=== PATIENT | male | born 1995 | race African-American/Black ===

== ENCOUNTER 2018-02-14 15:21 | Observation (INO) | payer OTHER ==
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
[2018-02-14] MEDS: KETOROLAC 30 MG/ML INJ IV PRN ×2 (18:14→23:53)
[2018-02-14] MEDS: NA CHLORIDE 0.9% 1,000 ML IV SCH ×2 (18:14→20:48)
[2018-02-14] MEDS: PANTOPRAZOLE 40MG TABLET PO SCH (18:14)
--- NOTE | 2018-02-14 21:07 | RAD REPORT ---
EXAM DESCRIPTION: MRI - Lumbar Spine Wo Con - 02/14/2018 8:33 pm CLINICAL HISTORY: Radiculopathy and back pain. Lumbar fracture. COMPARISON: None. TECHNIQUE: Sagittal T1, T2 and STIR weighted sequences were obtained. Axial T1 and T2 sequences were obtained through the lumbar disc levels. FINDINGS: L1-2, L2-3, L3-4 and L4-5 demonstrate no significant abnormality. The L5-S1 disc is thinned and desiccated. A small to moderate right lateral disc herniation is presen t which narrows the right neural foramina. No abnormal signal within the bones is seen. A fracture involving the vertebral body is not noted. IMPRESSION: Small to moderate right lateral disc herniation L5-S1 resulting in right foraminal steno sis
--- NOTE | 2018-02-14 21:11 | RAD REPORT ---
EXAM DESCRIPTION: MRI - Thoracic Spine Wo Contr - 02/14/2018 8:33 pm CLINICAL HISTORY: Radiculopathy, back pain, vertebral fracture COMPARISON: None. TECHNIQUE: Sagittal T1 weighted, T2 weighted and T2 STIR weighted sequences were obtained. Axial T2 weighted images were obtained through each disc level. FINDINGS: A disc herniation is not seen. Significant disc bulge is not noted. Central spinal stenosis is not present. The neural foramina are patent. Spinal cord is normal caliber and signal. No abnormal signal within the bones is noted. A vertebral fracture is not seen. IMPRESSION: Unremarkable MRI thoracic spine
[2018-02-14] MEDS: ACETAMINOPHEN 500 MG TAB PO PRN (21:16)
[2018-02-15 02:44] LABS: Urine Appearance CLEAR; Urine Bilirubin NEGATIVE (NEG); Urine Blood NEGATIVE (NEG); Urine Color YELLOW; Urine Glucose NEGATIVE (NEG); Urine Protein NEGATIVE (NEG); Urine Urobilinogen 0.2 mg/dL (0.2-1.0); Urine pH 6.5 (5.0-7.0)
[2018-02-15 02:59] LABS: Urine Microscopic Reflex ORDER UMIC
[2018-02-15 03:12] LABS: Urine Bacteria <20 /HPF (NONE SEEN); Urine Culture Reflex Order NOT NEEDED; Urine RBC <5 /HPF (NONE SEEN)
[2018-02-15 05:26] LABS: Absolute Lymphocytes (CBC) 1.4 K/uL (0.7-4.9); Absolute Monocytes 0.3 K/uL (0.1-1.3); Absolute Neutrophil 1.6 K/uL (1.8-8.0); Eosinophils % 1.4 % (0-4.4); Lymphocytes % 42.4 % (15.3-44.8); MCH 27.2 pg (27.0-35.0); MCV 83.7 fL (80-100); MPV 8.7 fL (7.6-11.3); Monocytes % 8.4 % (3.3-12.3); RBC Red Blood Cell Count 4.54 M/uL (4.33-5.43)
[2018-02-15 05:39] LABS: ALT/SGPT 9 IU/L (10-60); AST/SGOT 15 IU/L (10-42); Albumin 3.4 g/dL (3.2-5.5); Alkaline Phosphatase 43 IU/L (42-121); BUN Blood Urea Nitrogen 8 mg/dL (6-20); Bicarbonate 27 mEq/L (21-31); Bilirubin Total 1.1 mg/dL (0.3-1.2); Glucose Level 86 mg/dL (65-120); Potassium 4.1 mEq/L (3.6-5.0); Protein, Total 5.8 g/dL (6.0-8.3); Sodium Level 137 mEq/L (135-145)
[2018-02-15] MEDS: PANTOPRAZOLE 40MG TABLET PO SCH (08:33)
[2018-02-15] MEDS: ACETAMINOPHEN 500 MG TAB PO PRN (09:21)
--- NOTE | 2018-02-15 10:38 | P.DS ---
Admission Date: 02/14/18 Discharge Date: 02/15/18 Primary Care Provider: Dr. Morrison Disposition: ROUTINE DISCHARGE Discharge Condition: GOOD Reason for Admission: back pain Procedures: MRI: FINDINGS: L1-2, L2-3, L3-4 and L4-5 demonstrate no significant abnormality. The L5-S1 disc is thinned and desiccated. A small to moderate right lateral disc herniation is present which narrows the right neural foramina. No abnormal signal within the bones is seen. A fracture involving the vertebral body is not noted. IMPRESSION: Small to moderate right lateral disc herniation L5-S1 resulting in right foraminal stenosis - Problems (1) Lumbar disc herniation Current Visit: Yes Status: Acute (2) Foraminal stenosis of lumbar region Current Visit: Yes Status: Acute (3) Back pain Current Visit: Yes Status: Chronic Qualifiers: Back pain location: thoracic back pain Chronicity: chronic Back pain laterality: midline Qualified Code(s): M54.6 - Pain in thoracic spine; G89.29 - Other chronic pain; G89.29 - Other chronic pain (4) GERD (gastroesophageal reflux disease) Current Visit: Yes Status: Suspected Qualifiers: Esophagitis presence: esophagitis presence not specified Qualified Code(s) : K21.9 - Gastro-esophageal reflux disease without esophagitis Brief History of Present Illness: 22-year-old male presented to [facility] for back pain. The patient also reported some epigastric and chest pain. Due to the nature of his symptoms the patient was transferred to the hospital for further evaluation. Hospital Course: Patient presented with back pain. During the course of his stay the pain improved. Patient did have an MRI of the thoracic and lumbar region. The MRI of the lower spine showed small to moderate right lateral disc herniation at the L5-S1 region with right foraminal stenosis noted. At discharge patient will continue with over the counter medication including ibuprofen 600 mg 1 pill twice daily as needed for pain along with Tylenol 500 mg 1 pill 3 times a day as needed. The patient will be provided Neurontin 100 mg 1 pill 3 times a day as needed for pain as well. Lidocaine patch applied to the back daily will also be provided. Recommendation is for the patient to follow up with a back surgeon and possibly pain management to further address. Recommendation on no heavy lifting, pushing or pulling. He is to follow up with his PCP within 1 week so that he can be evaluated and cleared to go back to work. Patient may have underlying GERD. Recommendation is to continue with Protonix 40 mg 1 pill once daily. Patient may require GI evaluation if this persists. Vital Signs/Physical Exam: Temp Pulse Resp BP Pulse Ox 97.4 F 56 18 120/59 L 100 02/15/18 04:00 02/15/18 04:00 02/15/18 04:00 02/15/18 04:00 02/15/18 04:00 General: Alert, In no apparent distress, Oriented x3, Cooperative HEENT: Atraumatic, Mucous membr. moist/pink Neck: Supple, No Thyromegaly Respiratory: Clear to auscultation bilaterally, Normal air movement Cardiovascular: Normal pulses, Regular rate/rhythm Gastrointestinal: Normal bowel sounds, Soft and benign, Non-distended, No tenderness, No masses, No rebound, No guarding Musculoskeletal: No erythema, No tenderness, No warmth Integumentary: No tenderness/swelling, No erythema, No warmth, No cyanosis Neurological: Normal speech, Normal strength at 5/5 x4 extr, Normal tone, Normal affect Lymphatics: No axilla or inguinal lymphadenopathy Laboratory Data at Discharge: WBC 3.3 K/uL (4.3-10.9) L 02/15/18 04:23 Hgb 12.3 g/dL (13.6-17.9) L 02/15/18 04:23 Hct 38.0 % (39.6-49.0) L 02/15/18 04:23 Plt Count 243 K/uL (152-406) 02/15/18 04:23 Sodium 137 mEq/L (135-145) 02/15/18 04:23 Potassium 4.1 mEq/L (3.6-5.0) 02/15/18 04:23 BUN 8 mg/dL (6-20) 02/15/18 04:23 Creatinine 0.95 mg/dL (0.61-1.24) 02/15/18 04:23 Glucose 86 mg/dL (65-120) 02/15/18 04:23 Total Bilirubin 1.1 mg/dL (0.3-1.2) 02/15/18 04:23 AST 15 IU/L (10-42) 02/15/18 04:23 ALT 9 IU/L (10-60) L 02/15/18 04:23 Alkaline Phosphatase 43 IU/L (42-121) 02/15/18 04:23 Home Medications: Gabapentin [Neurontin] 100 mg PO TID PRN #30 cap 02/15/18 Lidocaine 5% Patch [Lidoderm 5% Patch*] 1 patch TD DAILY #15 patch 02/15/18 Pantoprazole [Protonix Tab*] 40 mg PO DAILY #30 tab 02/15/18 New Medications: Gabapentin [Neurontin] 100 mg PO TID PRN #30 cap PRN Reason: Pain Lidocaine 5% Patch [Lidoderm 5% Patch*] 1 patch TD DAILY #15 patch Pantoprazole [Protonix Tab*] 40 mg PO DAILY #30 tab Patient Discharge Instructions: 1. Patient will need to follow up with his PCP within 1 week to follow up this hospitalization. 2. Patient presented with back pain. The patient had an MRI of the lower spine showing small to moderate right lateral disc herniation at the L5-S1 region with right foraminal stenosis noted. Patient without significant back pain at this time. Patient may take ibuprofen 600 mg 1 pill twice daily as needed for pain along with Tylenol 500 mg 1 pill 3 times a day as needed. The patient will be provided Neurontin 100 mg 1 pill 3 times a day as needed for pain as well. Lidocaine patch will also be provided. Recommendation is for the patient to follow up with a back surgeon and possibly pain management to further address. Recommendation on no heavy lifting, pushing or pulling. He is to follow up with his PCP within 1 week so that he can be evaluated and cleared to go back to work. 3. Patient may have underlying GERD. Recommendation is to continue with Protonix 40 mg 1 pill once daily. Patient may require GI evaluation if this persists. Diet: AHA Activity: No lifting more than 10 lbs Time spent managing pt's care (in minutes): 55
== END 2018-02-15 12:43 | disposition home or self-care (01) ==
LOC: 2ND 15:21 → INTOOBSV 15:21
PROVIDERS: ADMIT Internal Medicine; ATTEND Internal Medicine
DX: M51.27 Other intervertebral disc displacement, lumbosacral region (principal); M48.061 Spinal stenosis, lumbar region without neurogenic claudication
CPT/HCPCS: 36415; 72146; 72148; 80053; 81003; 81015; 85025; G0378; J7030

== ENCOUNTER 2023-04-07 23:11 | Emergency (ER) | payer OTHER ==
--- OUTSIDE RECORDS SUMMARY | 2023-04-07 23:23 | XMS REPORT | Continuity of Care Document ---
:1995 Author Organization [facility] t Address [address] [place] [address] [place] [id number] Care Team Providers Name Role Phone Mason MSN,, Nicolle Primary Care Physician [phone] Esau Malloy Attending Clinician CHARLY CABRERA Attending Clinician Unavailable Payers Payer Name Policy Type Policy Number Effective Date Expiration Date Janusz matias CIGNA II [id number] 2016 00:00:00 Problems This patient has no known problems. Allergies, Adverse Reactions, Alerts Allergy Allergy Status Severity Reaction(s) Onset Inactive Treating Comm ents Source Name Type Date Date Clinician NO KNOWN Drug Active Univers ALLERGIE Class ity of S [facility] Social History Social Habit Start Date Stop Date Quantity Comments Source Sex Assigned At [facility] Exposure to SARS-CoV-2 Not sure Un iversFormerly [facility] (event) [facility] Smoking Status Start Date Stop Date Source Current some day smoker 2017-11-20 00:00:00 Univ [facility] Medications Ordered Filled Start Stop Current Ordering Indication Dosage Frequency Signature Comments Components Source Medication Medication Date Date Medication? Clinician (SIG) Name Name TAKE 1 2021-0 No 1 TABLET BY 8-18 MOUTH EVERY 00:00: DAY 00 NEEDED FOR ANXIETY TAKE 2 2021-0 No TABLETS BY 8-18 MOUTH EVERY 00:00: 6 HOURS 00 NEEDED FOR PAIN TAKE 1 OR 2 2021-0 No 25 TABLETS 8-18 EVERY 8 00:00: HOURS 00 NEEDED. TAKE 1 2021-0 No 1 TABLET BY 8-18 MOUTH EVERY 00:00: DAY 00 NEEDED FOR ANXIETY TAKE 2 2021-0 No TABLETS BY 8-18 MOUTH EVERY 00:00: 6 HOURS 00 NEEDED FOR PAIN TAKE 1 OR 2 2022-0 No TABLETS 8-18 EVERY 8 00:00: HOURS 00 NEEDED. TAKE 1 2-0 No 1 TABLET BY 8-18 MOUTH EVERY 00:00: DAY 00 NEEDED FOR ANXIETY TAKE 2 2022-0 No TABLETS BY 8-18 MOUTH EVERY 00:00: 6 HOURS 00 NEEDED FOR PAIN TAKE 1 OR 2 2022-0 No 25 TABLETS 8-18 EVERY 8 00:00: HOURS 00 NEEDED. Dose 2022-0 No Unknown 5-02 00:00: 00 Dose 2022-0 No Unknown 5-02 00:00: 00 Dose 2-0 No Unknown 5-02 00:00: 00 Dose 2-0 No Unknown 5-02 00:00: 00 Dose 2-0 No Unknown 5-02 00:00: 00 Dose 2-0 No Unknown 5-02 00:00: 00 Dose 2-0 No Unknown 5-02 00:00: 00 Dose 2-0 No Unknown 5-02 00:00: 00 Dose 2-0 No Unknown 5-02 00:00: 00 Dose 2022-0 No Unknown 5-02 00:00: 00 Dose 2-0 No Unknown 5-02 00:00: 00 Dose 2-0 No Unknown 5-02 00:00: 00 Dose 2-0 No Unknown 5-02 00:00: 00 Dose 2-0 No Unknown 5-02 00:00: 00 Dose 2-0 No Unknown 5-02 00:00: 00 Dose 2-0 No Unknown 5-02 00:00: 00 Dose 2-0 No Unknown 5-02 00:00: 00 Dose 2-0 No Unknown 5-02 00:00: 00 Dose 2-0 No Unknown 5-02 00:00: 00 Dose 2022-0 No Unknown 5-02 00:00: 00 Dose 2-0 No Unknown 5-02 00:00: 00 Dose 2-0 No Unknown 5-02 00:00: 00 Dose 2-0 No Unknown 5-02 00:00: 00 Dose 2-0 No Unknown 5-02 00:00: 00 Dose 2022-0 No Unknown 4-28 00:00: 00 Dose 2022-0 No Unknown 4-28 00:00: 00 Dose 2022-0 No Unknown 4-28 00:00: 00 Dose 2022-0 No Unknown 4-28 00:00: 00 Dose 2022-0 No Unknown 4-28 00:00: 00 Dose 2022-0 No Unknown 4-28 00:00: 00 Dose 2022-0 No Unknown 4-28 00:00: 00 Dose 2022-0 No Unknown 4-28 00:00: 00 Dose 2022-0 No Unknown 4-28 00:00: 00 Dose 2022-0 No Unknown 4-28 00:00: 00 Dose 2022-0 No Unknown 4-28 00:00: 00 Dose 2022-0 No Unknown 4-28 00:00: 00 Dose 2022-0 No Unknown 4-28 00:00: 00 Dose 2022-0 No Unknown 4-28 00:00: 00 Dose 2022-0 No Unknown 4- 00:00: 00 Dose 2022-0 No Unknown 4- 00:00: 00 Dose 2022-0 No Unknown 4-28 00:00: 00 Dose 2022-0 No Unknown 4-28 00:00: 00 Dose 2022-0 No Unknown 4-28 00:00: 00 Dose 2022-0 No Unknown 4-28 00:00: 00 Dose 2022-0 No Unknown 4-28 00:00: 00 Dose 2022-0 No Unknown 4-28 00:00: 00 Dose 2022-0 No Unknown 4- 00:00: 00 Dose 2022-0 No Unknown 4-28 00:00: 00 Dose 2022-0 No Unknown 4-28 00:00: 00 Dose 2022-0 No Unknown 4-28 00:00: 00 Dose 2022-0 No Unknown 4-28 00:00: 00 Dose 2022-0 No Unknown 4-28 00:00: 00 Dose 2022-0 No Unknown 4-28 00:00: 00 Dose 2022-0 No Unknown 4-28 00:00: 00 Dose 2022-0 No Unknown 4-28 00:00: 00 Dose 2022-0 No Unknown 4-28 00:00: 00 Dose 2022-0 No Unknown 4-28 00:00: 00 Dose 2022-0 No Unknown 4-28 00:00: 00 Dose 2022-0 No Unknown 4-28 00:00: 00 Dose 2022-0 No Unknown 4-28 00:00: 00 Dose 2022-0 No Unknown 4-28 00:00: 00 Dose 2022-0 No Unknown 4-28 00:00: 00 Dose 2022-0 No Unknown 4-28 00:00: 00 Dose 2022-0 No Unknown 4-28 00:00: 00 Dose 2022-0 No Unknown 4-28 00:00: 00 Dose 2022-0 No Unknown 4-28 00:00: 00 Dose 2022-0 No Unknown 4-28 00:00: 00 Dose 2022-0 No Unknown 4-28 00:00: 00 Dose 2022-0 No Unknown 4-28 00:00: 00 Dose 2022-0 No Unknown 4-28 00:00: 00 Dose 2022-0 No Unknown 4-28 00:00: 00 Dose 2022-0 No Unknown 4-28 00:00: 00 Dose 2022-0 No Unknown 4-28 00:00: 00 Dose 2022-0 No Unknown 4-28 00:00: 00 Dose 2022-0 No Unknown 4-28 00:00: 00 Dose 2022-0 No Unknown 4-28 00:00: 00 Dose 2022-0 No Unknown 4-28 00:00: 00 Dose 2022-0 No Unknown 4-28 00:00: 00 Dose 2022-0 No Unknown 4-28 00:00: 00 Dose 2022-0 No Unknown 4-28 00:00: 00 Dose 2022-0 No Unknown 4-28 00:00: 00 Dose 2022-0 No Unknown 4-28 00:00: 00 Dose 2022-0 No Unknown 4-28 00:00: 00 Dose 2022-0 No Unknown 4-28 00:00: 00 Dose 2022-0 No Unknown 4-28 00:00: 00 Dose 2022-0 No Unknown 4-28 00:00: 00 Dose 2022-0 No Unknown 4-28 00:00: 00 Dose 2022-0 No Unknown 4-28 00:00: 00 Dose 2022-0 No Unknown 4-28 00:00: 00 Dose 2022-0 No Unknown 4-28 00:00: 00 Dose 2022-0 No Unknown 4-28 00:00: 00 Dose 2022-0 No Unknown 4-28 00:00: 00 Dose 2022-0 No Unknown 4-28 00:00: 00 Dose 2022-0 No Unknown 4-28 00:00: 00 Dose 2022-0 No Unknown 4-28 00:00: 00 Dose 2022-0 No Unknown 4-28 00:00: 00 Dose 2022-0 No Unknown 4-28 00:00: 00 Dose 2022-0 No Unknown 4-28 00:00: 00 Dose 2022-0 No Unknown 4-28 00:00: 00 Dose 2022-0 No Unknown 4-28 00:00: 00 Dose 2022-0 No Unknown 4-28 00:00: 00 Dose 2022-0 No Unknown 4-28 00:00: 00 Dose 2022-0 No Unknown 4-28 00:00: 00 Dose 2022-0 No Unknown 4-28 00:00: 00 Dose 2022-0 No Unknown 4-28 00:00: 00 doxycycline 2020-0 No 1mg monohydrate 2-24 100 mg 00:00: capsule 00 doxycycline 2020-0 No 1mg monohydrate 2-24 100 mg 00:00: capsule 00 doxycycline 2020-0 No 1mg monohydrate 2-24 100 mg 00:00: capsule 00 Macrobid 2020-0 No 1mg 100 mg 2-20 capsule 00:00: 00 Macrobid 2020-0 No 1mg 100 mg 2-20 capsule 00:00: 00 Macrobid 2020-0 No 1mg 100 mg 2-20 capsule 00:00: 00 famotidine 2019-10 2020- No 20mg 20 mg, IV U nivers 20 mg in NS 10-27 Piggyback, i ty of 50 ml 02:15: 02:00 ONCE, 1 [place] (PEPCID) 20 00 :00 dose, [facility] Med ical mg/50 mL 08/26/20 at [facility] Piggyback 2014, 50 20 mg mL maalox:diph 2019-10 2020- No 15mL 15 mL, Uni vers enhydrAMINE 10-27 Oral ity of :lidocaine 02:15: 01:23 [place] 2 % viscous 00 :00 Swallow), Med ical 1:1:1 ONCE, 1 [facility] (FIRST-MOUT dose, Anabel HWASH BLM) 08/26/20 at oral 2014, suspension Routine 15 mL hydroCHLORO 2019-10 Yes [id number] 25mg Take 1 Univers thiazide 25 1-05 tablet by ity of mg tablet 00:00: mouth [place] 00 every Medical morning. Branch famotidine 2019-10 Yes [id number] 40mg Take 1 U nivers (PEPCID) 40 1-05 tablet by ity of mg tablet 00:00: mouth [place] 00 daily. Medical Branch azithromyci 2020-0 No 2mg n 500 mg 8-09 tablet 00:00: 00 azithromyci 2020-0 No 2mg n 500 mg 8-09 tablet 00:00: 00 azithromyci 2020-0 No 2mg n 500 mg 8-09 tablet 00:00: 00 azithromyci 2020-0 No 2mg n 500 mg 4-06 tablet 00:00: 00 azithromyci 2020-0 No 2mg n 500 mg 4-06 tablet 00:00: 00 azithromyci 2020-0 No 2mg n 500 mg 4-06 tablet 00:00: 00 doxycycline 2018-0 No 1mg hyclate 100 4-24 mg tablet 00:00: 00 doxycycline 2018-0 No 1mg hyclate 100 4-24 mg tablet 00:00: 00 doxycycline 2018-0 No 1mg hyclate 100 4-24 mg tablet 00:00: 00 azithromyci 2015-0 No 2mg n 500 mg 2-11 tablet 00:00: 00 azithromyci 2015-0 No 2mg n 500 mg 2-11 tablet 00:00: 00 azithromyci 2015-0 No 2mg n 500 mg 2-11 tablet 00:00: 00 Zithromax 1 2015-0 No 1gram gram oral 2-06 packet 00:00: 00 Zithromax 1 2015-0 No 1gram gram oral 2-06 packet 00:00: 00 Zithromax 1 2015-0 No 1gram gram oral 2-06 packet 00:00: 00 Vital Signs Vital Name Observation Time Observation Value Comments Source Systolic blood 2020-08-27 02:00:00 159 mm[Hg] Univer sity of pressure [facility] Diastolic blood 2020-08-27 02:00:00 108 mm[Hg] Unive rsity of pressure [facility] Heart rate 2020-08-27 02:00:00 53 /min [facility] Respiratory rate 2020-08-27 02:00:00 15 /min [facility] Oxygen saturation in 2020-08-27 02:00:00 99 /min [facility] Arterial blood by [facility] Pulse oximetry Branch Body temperature 2020-08-26 23:49:00 36.72 Mimi [facility] Body height 2020-08-26 23:49:00 172.7 cm [facility] Body weight 2020-08-26 23:49:00 64 kg [facility] BMI 2020-08-26 23:49:00 21.45 kg/m2 [facility] BP Systolic 2022-10-09 11:33:00 130 mm[Hg] BP Diastolic 2022-10-09 11:33:00 81 mm[Hg] Weight Measured 2022-10-09 11:33:00 135.00 pounds Height Measured 2022-10-09 11:33:00 70.00 inches Body Temperature 2022-10-09 11:33:00 98.20 degrees Heart Rate 2022-10-09 11:33:00 84.00 /min Respiratory Rate 2022-10-09 11:33:00 18.00 /min BP Systolic 2022-06-24 11:38:00 116 mm[Hg] BP Diastolic 2022-06-24 11:38:00 83 mm[Hg] Weight Measured 2022-06-24 11:38:00 124.00 pounds Height Measured 2022-06-24 11:38:00 70.00 inches Body Temperature 2022-06-24 11:38:00 98.30 degrees Heart Rate 2022-06-24 11:38:00 98.00 /min Respiratory Rate 2022-06-24 11:38:00 18.00 /min BP Systolic 2022-02-16 15:25:00 141 mm[Hg] BP Diastolic 2022-02-16 15:25:00 95 mm[Hg] Weight Measured 2022-02-16 15:25:00 139.80 pounds Height Measured 2022-02-16 15:25:00 70.00 inches Body Temperature 2022-02-16 15:25:00 98.40 degrees Heart Rate 2022-02-16 15:25:00 79.00 /min Respiratory Rate 2022-02-16 15:25:00 BP Systolic 2021-02-21 10:33:00 137 mm[Hg] BP Diastolic 2021-02-21 10:33:00 72 mm[Hg] Weight Measured 2021-02-21 10:33:00 155.00 pounds Height Measured 2021-02-21 10:33:00 70.00 inches Body Temperature 2021-02-21 10:33:00 98.40 degrees Heart Rate 2021-02-21 10:33:00 55.00 /min Respiratory Rate 2021-02-21 10:33:00 19.00 /min BP Systolic 2020-12-11 13:58:00 131 mm[Hg] BP Diastolic 2020-12-11 13:58:00 86 mm[Hg] Weight Measured 2020-12-11 13:58:00 144.20 pounds Height Measured 2020-12-11 13:58:00 70.00 inches Body Temperature 2020-12-11 13:58:00 98.60 degrees Heart Rate 2020-12-11 13:58:00 72.00 /min Respiratory Rate 2020-12-11 13:58:00 BP Systolic 2020-05-26 16:42:00 118 mm[Hg] BP Diastolic 2020-05-26 16:42:00 75 mm[Hg] Weight Measured 2020-05-26 16:42:00 138.20 pounds Height Measured 2020-05-26 16:42:00 70.00 inches Body Temperature 2020-05-26 16:42:00 98.60 degrees Heart Rate 2020-05-26 16:42:00 73.00 /min Respiratory Rate 2020-05-26 16:42:00 16.00 /min BP Systolic 2020-02-19 16:17:00 130 mm[Hg] BP Diastolic 2020-02-19 16:17:00 80 mm[Hg] Weight Measured 2020-02-19 16:17:00 139.00 pounds Height Measured 2020-02-19 16:17:00 70.00 inches Body Temperature 2020-02-19 16:17:00 98.50 degrees Heart Rate 2020-02-19 16:17:00 74.00 /min Respiratory Rate 2020-02-19 16:17:00 16.00 /min BP Systolic 2020-01-22 14:30:00 120 mm[Hg] BP Diastolic 2020-01-22 14:30:00 72 mm[Hg] Weight Measured 2020-01-22 14:30:00 141.80 pounds Height Measured 2020-01-22 14:30:00 70.00 inches Body Temperature 2020-01-22 14:30:00 98.00 degrees Heart Rate 2020-01-22 14:30:00 66.00 /min Respiratory Rate 2020-01-22 14:30:00 16.00 /min BP Systolic 2018-03-12 15:33:00 119 mm[Hg] BP Diastolic 2018-03-12 15:33:00 72 mm[Hg] Weight Measured 2018-03-12 15:33:00 139.20 pounds Height Measured 2018-03-12 15:33:00 70.00 inches Body Temperature 2018-03-12 15:33:00 97.90 degrees Heart Rate 2018-03-12 15:33:00 68.00 /min Respiratory Rate 2018-03-12 15:33:00 16.00 /min BP Systolic 2018-02-26 11:28:00 120 mm[Hg] BP Diastolic 2018-02-26 11:28:00 77 mm[Hg] Weight Measured 2018-02-26 11:28:00 137.00 pounds Height Measured 2018-02-26 11:28:00 70.00 inches Body Temperature 2018-02-26 11:28:00 98.00 degrees Heart Rate 2018-02-26 11:28:00 65.00 /min Respiratory Rate 2018-02-26 11:28:00 BP Systolic 2018-02-07 14:44:00 154 mm[Hg] BP Diastolic 2018-02-07 14:44:00 84 mm[Hg] Weight Measured 2018-02-07 14:44:00 142.60 pounds Height Measured 2018-02-07 14:44:00 70.00 inches Body Temperature 2018-02-07 14:44:00 98.70 degrees Heart Rate 2018-02-07 14:44:00 77.00 /min Respiratory Rate 2018-02-07 14:44:00 18.00 /min BP Systolic 2017-05-23 14:49:00 123 mm[Hg] BP Diastolic 2017-05-23 14:49:00 79 mm[Hg] Weight Measured 2017-05-23 14:49:00 144.00 pounds Height Measured 2017-05-23 14:49:00 69.50 inches Body Temperature 2017-05-23 14:49:00 98.70 degrees Heart Rate 2017-05-23 14:49:00 64.00 /min Respiratory Rate 2017-05-23 14:49:00 Procedures Procedure Date / Time Performed Performing Clinician Sourc e XR CHEST 1 VW 2020-08-27 00:17:39 Esau Mathews [facility] URINALYSIS 2020-08-27 00:05:00 Bisi [facility] ADC / LCC - DRUG 2020-08-27 00:05:00 Esau Mathews [facility] SCREEN TRIAGE Medical Branch LIPASE 2020-08-27 00:01:00 Esau Mathews [facility] MAGNESIUM 2020-08-27 00:01:00 Bisi [facility] TROPONIN I 2020-08-27 00:01:00 Bisi [facility] COMP. METABOLIC PANEL 2020-08-27 00:01:00 Esau Mathews [facility] ([id number]) [facility] CBC WITH DIFF 2020-08-27 00:01:00 Bisi [facility] NOTICE OF PRIVACY 2020-08-26 23:27:07 Doctor Unassigned, No Univ [facility] PRACTICES Name [facility] CONSENT/REFUSAL FOR 2020-08-26 23:26:06 Doctor Unassigned, No Un iversFormerly [facility] DIAGNOSIS AND Name [facility] TREATMENT Plan of Care Planned Activity Planned Date Details Comments Source Goal Plan of Care Note [code = 23596-5] Goal Plan of Care Note [code = 34679-4] Goal Plan of Care Note [code = 71791-5] Goal Plan of Care Note [code = 78895-1] Goal Plan of Care Note [code = 26942-4] Goal Plan of Care Note [code = 38377-9] Goal Plan of Care Note [code = 95454-2] Goal Plan of Care Note [code = 63509-4] Goal Plan of Care Note [code = 76828-0] Goal Plan of Care Note [code = 18812-7] Goal Plan of Care Note [code = 42194-3] Goal Plan of Care Note [code = 27479-7] Goal Plan of Care Note [code = 11970-6] Goal Plan of Care Note [code = 35334-9] Goal Plan of Care Note [code = 70466-4] Goal Plan of Care Note [code = 78621-9] Goal Plan of Care Note [code = 99419-3] Goal Plan of Care Note [code = 17734-2] Goal Plan of Care Note [code = 39497-6] Goal Plan of Care Note [code = 54346-5] Goal Plan of Care Note [code = 30649-7] Goal Plan of Care Note [code = 62837-9] Goal Plan of Care Note [code = 31025-7] Goal Plan of Care Note [code = 11422-8] Goal Plan of Care Note [code = 40455-6] Goal Plan of Care Note [code = 19300-5] Goal Plan of Care Note [code = 76918-3] Goal Plan of Care Note [code = 51768-5] Goal Plan of Care Note [code = 27587-0] Goal Plan of Care Note [code = 23696-0] Goal Plan of Care Note [code = 42961-4] Goal Plan of Care Note [code = 34441-3] Goal Plan of Care Note [code = 86949-5] Goal Plan of Care Note [code = 80041-3] Goal Plan of Care Note [code = 90356-0] Goal Plan of Care Note [code = 68510-5] Goal Plan of Care Note [code = 19206-2] Goal Plan of Care Note [code = 77047-9] Goal Plan of Care Note [code = 72556-6] Goal Plan of Care Note [code = 84904-3] Goal Plan of Care Note [code = 89890-4] Goal Plan of Care Note [code = 63360-0] Goal Plan of Care Note [code = 37748-7] Goal Plan of Care Note [code = 26637-8] Goal Plan of Care Note [code = 68781-6] Goal Plan of Care Note [code = 19045-6] Goal Plan of Care Note [code = 78700-8] Goal Plan of Care Note [code = 68198-2] Goal Plan of Care Note [code = 90237-1] Goal Plan of Care Note [code = 76895-7] Goal Plan of Care Note [code = 34076-4] Goal Plan of Care Note [code = 28135-8] Goal Plan of Care Note [code = 30895-5] Goal Plan of Care Note [code = 20374-3] Goal Plan of Care Note [code = 39487-6] Goal Plan of Care Note [code = 96626-5] Encounters Start End Encounter Admission Attending Care Care Encounter Source Date/Time Date/Time Type Type Clinicians Facility Department ID 2021-08-20 Emergency [facility] [id number] [facility] 2022-11-08 Outpatient SFA SFA [id number] [place] 08:51:17 08:51:17 0118 F Ari 2022-10-20 2022-10-20 Outpatient SFA SFA [id number] [place] 15:43:38 15:43:38 1230 F [place] 2022-10-09 2022-10-09 Outpatient SFA SFA [id number] [place] 11:21:26 11:21:26 1219 F [place] 2022-10-09 2022-10-09 Outpatient [id number] 00:00:00 00:00:00 Visit ddc6-4e3c dc6-4e3c-b -ij43-s56 [id number] [id number] 2022-06-24 2022-06-24 Outpatient [id number] 00:00:00 00:00:00 Visit 8u30-5i2p d50-7k5p-t -o3n9-l90 0m7-b83my6 mg007n88g 00d40d 2022-06-08 2022-06-08 Outpatient [id number] 00:00:00 00:00:00 Visit 84dd-4dda 4dd-4dda-b -p9hd-894 6ea-932d20 x78h0l8ip b2d8ed 2020-08-26 2020-08-26 Emergency Esau Mathews [facility] [id number] Univers 17:53:00 20:16:00 Serena Metcalf 350.1.13.10 i Cookie [id number] [facility] [id number] [place] [id number] Branch 2020-06-10 2020-06-10 [facility] [id number] Univers 09:30:00 09:30:00 CHARLY [id number] [facility] 2020-06-10 2020-06-10 [facility] [id number] Univers 09:30:00 09:30:00 CHARLY [facility] Results Test Description Test Time Test Comments Results Result Comments Source CT/NG, NAAT, URINE 2022-10-10 20:03:22 Test Item Value Reference Range Interpretation Comme nts GONORRHEA, NAAT (test code = POSITIVE NEGATIVE A Note: Testing is performed with 20524) Tim SRINATH 680 systems using real-time polymerase chain reaction (PCR) method. CHLAMYDIA, NAAT (test code = POSITIVE NEGATIVE A Note: Testing is performed with 56391) Tim SRINATH 680 systems using real-time polymerase chain reaction (PCR) method. UNLESS OTHERWISE INDIC ATED, ALL TESTING PERFORMED [facility], [place] [address] 4 KNOWLEDGE ENGINEER: BRENNAN DOWNING M.D. CLIA NUMBER [id number] [facility] N O. [id number] 03:50:37 Test Item Value Reference Range Interpretation Comments RPR RESULT (test code = NON-REACTIVE NON-REACTIVE 3501) RPR TITER (test code = 3500) NOT INDIC. TITER NOT INDIC. HEPATITIS PANEL, [id number] 03:03:10 Test Item Value Reference Range Interpretation Comments HEPATITIS A IgM (test NON-REACTIVE NON-REACTIVE code = 79391) HEPATITIS B CORE IgM NON-REACTIVE NON-REACTIVE (test code = 4644) HEPATITIS B SURF AG NON-REACTIVE NON-REACTIVE (test code = 2739) HEPATITIS C ANTIBODY NON-REACTIVE NON-REACTIVE (test code = 4675) INTERPRETATION (NOTE) Hepatitis A HEPATITIS A: (test code sero logy shows no = 2552) evidence of acu te hepatitis A. INTERPRETATION (NOTE) Hepatitis B HEPATITIS B: (test code sero logy shows no = 79432) evidence of acu te hepatitis B and no indication of exposure to hepatitis B vir us in the previous sancho eight months. INTERPRETATION (NOTE) Hepatitis C HEPATITIS C: (test code sero logy shows no = 36317) evidence of exposure to hepatitisC viru s at this time. I t can take up to 12 months after exposure tothe hepatitis C vir us for antibodies to become detectab le in the blood in certain patient s. HIV 1/2 4TH GEN, RFLX [id number] 03:03:10 Test Item Value Reference Range Interpretation Comments HIV 1/2 4TH GEN, RFLX CONF (test NON-REACTIVE NON-REACTIVE code = 3514) HIV 1/2 4TH GEN, RFLX [id number] 00:00:00 Test Item Value Reference Range Interpretation Comments HIV 1/2 4TH GEN, RFLX CONF (test NON-REACTIVE code = 3514) HIV 1/2 4TH GEN, RFLX [id number] 00:00:00 Test Item Value Reference Range Interpretation Comments HIV 1/2 4TH GEN, RFLX CONF (test NON-REACTIVE code = 3514) [id number] 00:00:00 Test Item Value Reference Range Interpretation Comments RPR RESULT (test code = NON-REACTIVE 3501) RPR TITER (test code = 3500) NOT INDIC. TITER [id number] 00:00:00 Test Item Value Reference Range Interpretation Comments RPR RESULT (test code = NON-REACTIVE 3501) RPR TITER (test code = 3500) NOT INDIC. TITER [id number] 00:00:00 Test Item Value Reference Range Interpretation Comments RPR RESULT (test code = NON-REACTIVE 3501) RPR TITER (test code = 3500) NOT INDIC. TITER ACUTE HEPATITIS [id number] 00:00:00 Test Item Value Reference Range Interpretation Comments HEPATITIS A IgM (test code = NON-REACTIVE 28832) HEPATITIS B CORE IgM (test code NON-REACTIVE = 4644) HEPATITIS B SURF AG (test code = NON-REACTIVE 2739) HEPATITIS C ANTIBODY (test code NON-REACTIVE = 4675) INTERPRETATION HEPATITIS A: (NOTE) (test code = 2552) INTERPRETATION HEPATITIS B: (NOTE) (test code = 37980) INTERPRETATION HEPATITIS C: (NOTE) (test code = 35627) ACUTE HEPATITIS [id number] 00:00:00 Test Item Value Reference Range Interpretation Comments HEPATITIS A IgM (test code = NON-REACTIVE 54732) HEPATITIS B CORE IgM (test code NON-REACTIVE = 4644) HEPATITIS B SURF AG (test code = NON-REACTIVE 4459) HEPATITIS C ANTIBODY (test code NON-REACTIVE = 4675) INTERPRETATION HEPATITIS A: (NOTE) (test code = 2552) INTERPRETATION HEPATITIS B: (NOTE) (test code = 65280) INTERPRETATION HEPATITIS C: (NOTE) (test code = 72848) CT/NG, TMA, [id number] 00:00:00 Test Item Value Reference Range Interpretation Comments GONORRHEA, NAAT (test code = 04920) POSITIVE CHLAMYDIA, NAAT (test code = 41845) POSITIVE CT/NG, TMA, [id number] 00:00:00 Test Item Value Reference Range Interpretation Comments GONORRHEA, NAAT (test code = 86403) POSITIVE CHLAMYDIA, NAAT (test code = 77241) POSITIVE CT/NG, NAAT, [id number] 11:12:05 Test Item Value Reference Range Interpretation Comments GONORRHEA, NAAT NEGATIVE NEGATIVE IMPORTA NT NOTICE: SEE (test code = [place] [address]) [email or web address] Note: Assay methodology is nucleic acid amplification b y vacuum bottle assembler m ediated amplification ( TMA) utilizing the A ptima Combo 2 Assay. CHLAMYDIA, NAAT NEGATIVE NEGATIVE IMPORTA NT NOTICE: SEE (test code = [place] [address]) [email or web address] Note: Assay methodology is nucleic acid amplification b y vacuum bottle assembler m ediated amplification ( TMA) utilizing the A ptima Combo 2 Assay. CT/NG, TMA, [id number] 00:00:00 Test Item Value Reference Range Interpretation Comments GONORRHEA, NAAT (test code = 36039) NEGATIVE CHLAMYDIA, NAAT (test code = 76045) NEGATIVE CT/NG, TMA, [id number] 00:00:00 Test Item Value Reference Range Interpretation Comments GONORRHEA, NAAT (test code = 11113) NEGATIVE CHLAMYDIA, NAAT (test code = 63574) NEGATIVE HIV 1/2 4TH GEN, RFLX [id number] 03:58:56 Test Item Value Reference Range Interpretation Comments HIV 1/2 4TH GEN, NON-REACTIVE NON-REACTIVE UNLESS OTH ERWISE RFLX CONF (test INDICATED, A LL TESTING code = 3514) PERFORMED [facility], [facility]. [address] [place] [id number] [place] [address] DIRECTOR: BRENNAN DOWNING M.D. CLIA NUMBER [id number] CAP ACCREDITATION N O. [id number] HIV 1/2 4TH GEN, RFLX [id number] 00:00:00 Test Item Value Reference Range Interpretation Comments HIV 1/2 4TH GEN, RFLX CONF (test NON-REACTIVE code = 3514) HIV 1/2 4TH GEN, RFLX [id number] 00:00:00 Test Item Value Reference Range Interpretation Comments HIV 1/2 4TH GEN, RFLX CONF (test NON-REACTIVE code = 3514) [id number] 03:20:24 Test Item Value Reference Range Interpretation Comments RPR RESULT (test code = NON-REACTIVE NON-REACTIVE 3501) RPR TITER (test code = 3500) NOT INDIC. TITER NOT INDIC. [id number] 00:00:00 Test Item Value Reference Range Interpretation Comments RPR RESULT (test code = NON-REACTIVE 3501) RPR TITER (test code = 3500) NOT INDIC. TITER [id number] 00:00:00 Test Item Value Reference Range Interpretation Comments RPR RESULT (test code = NON-REACTIVE 3501) RPR TITER (test code = 3500) NOT INDIC. TITER [id number] 00:00:00 Test Item Value Reference Range Interpretation Comments RPR RESULT (test code = NON-REACTIVE 3501) RPR TITER (test code = 3500) NOT INDIC. TITER CULTURE, [id number] 12:23:36SPECIMEN NUMBER: [id number] CULTURE, URINE SPECIMEN NUMBER: [id number] SPECIMEN COMMENT: URINE SOURCE:URINE REPORT STATUS: FINAL FINAL REPORT: 06/26/2022 NO GROWTH AFTER 36 HOURS INCUBATIONCULTURE, URINE 2022-06-26 00:00:00 Test Item Value Reference Range Interpretation Comments CULTURE, URINE (test SPECIMEN NUMBER: code = 17759) [id number] CULTURE, [id number] 00:00:00 Test Item Value Reference Range Interpretation Comments CULTURE, URINE (test SPECIMEN NUMBER: code = 79695) [id number] CT/NG, NAAT, [id number] 10:58:25 Test Item Value Reference Range Interpretation Comments GONORRHEA, NAAT NEGATIVE NEGATIVE IMPORTA NT NOTICE: SEE (test code = [place] [address]) [email or web address] Note: Assay methodology is nucleic acid amplification b y vacuum bottle assembler m ediated amplification ( TMA) utilizing the A ptima Combo 2 Assay. CHLAMYDIA, NAAT NEGATIVE NEGATIVE IMPORTA NT NOTICE: SEE (test code = [place] [address]) [email or web address] Note: Assay methodology is nucleic acid amplification b y vacuum bottle assembler m ediated amplification ( TMA) utilizing the A ptima Combo 2 Assay. GC AND CHLAMYDIA, AMPLIFIED, [id number] 00:00:00 Test Item Value Reference Range Interpretation Comments GONORRHEA, NAAT (test code = 75357) NEGATIVE CHLAMYDIA, NAAT (test code = 76882) NEGATIVE GC AND CHLAMYDIA, AMPLIFIED, [id number] 00:00:00 Test Item Value Reference Range Interpretation Comments GONORRHEA, NAAT (test code = 33265) NEGATIVE CHLAMYDIA, NAAT (test code = 20551) NEGATIVE GC AND CHLAMYDIA, AMPLIFIED, [id number] 00:00:00 Test Item Value Reference Range Interpretation Comments GONORRHEA, NAAT (test code = 10051) NEGATIVE CHLAMYDIA, NAAT (test code = 61108) NEGATIVE GC AND CHLAMYDIA, AMPLIFIED, [id number] 00:00:00 Test Item Value Reference Range Interpretation Comments GONORRHEA, NAAT (test code = 69825) NEGATIVE CHLAMYDIA, NAAT (test code = 05188) NEGATIVE GC AND CHLAMYDIA, AMPLIFIED, [id number] 00:00:00 Test Item Value Reference Range Interpretation Comments GONORRHEA, NAAT (test code = 53418) NEGATIVE CHLAMYDIA, NAAT (test code = 40252) NEGATIVE GC AND CHLAMYDIA, AMPLIFIED, [id number] 00:00:00 Test Item Value Reference Range Interpretation Comments GONORRHEA, NAAT (test code = 27642) NEGATIVE CHLAMYDIA, NAAT (test code = 36235) NEGATIVE [id number] 04:29:10 Test Item Value Reference Range Interpretation Comments RPR RESULT (test code = NON-REACTIVE NON-REACTIVE 3501) RPR TITER (test code = 3500) NOT INDIC. TITER NOT INDIC. HIV 1/2 4TH GEN, RFLX [id number] 04:24:37 Test Item Value Reference Range Interpretation Comments HIV 1/2 4TH GEN, RFLX CONF (test NON-REACTIVE NON-REACTIVE code = 3514) HEPATITIS PANEL, [id number] 04:24:37 Test Item Value Reference Range Interpretation Comments HEPATITIS A IgM (test NON-REACTIVE NON-REACTIVE code = 31643) HEPATITIS B CORE IgM NON-REACTIVE NON-REACTIVE (test code = 4644) HEPATITIS B SURF AG NON-REACTIVE NON-REACTIVE (test code = 2739) HEPATITIS C ANTIBODY NON-REACTIVE NON-REACTIVE (test code = 4675) INTERPRETATION (NOTE) Hepatitis A HEPATITIS A: (test serology shows no code = 2552) evidence of acu te hepatitis A. INTERPRETATION (NOTE) Hepatitis B HEPATITIS B: (test serology shows no code = 91272) evidence of ac santos hepatitis B and no indication of exposure to hepatitis B vir us in the previous si xto eight months. INTERPRETATION (NOTE) Hepatitis C HEPATITIS C: (test serology shows no code = 86594) evidence of ex posure to hepatitisC v irus at this time. I t can take up to 12 m onths after exposure tothe hepatitis C vir us for antibodies to become detectab le in the blood in ce rtain patients. UNLES S OTHERWISE INDIC ATED, ALL TESTING PERFORMED [facility], I MD. [address] [place] [id number] [facility] DIRECTOR: BRENNAN DOWNING M.D. CLIA NUMBER [id number] [place] [id number] ACUTE HEPATITIS [id number] 00:00:00 Test Item Value Reference Range Interpretation Comments HEPATITIS A IgM (test code = NON-REACTIVE 29312) HEPATITIS B CORE IgM (test code NON-REACTIVE = 4644) HEPATITIS B SURF AG (test code = NON-REACTIVE 2739) HEPATITIS C ANTIBODY (test code NON-REACTIVE = 4675) INTERPRETATION HEPATITIS A: (NOTE) (test code = 2552) INTERPRETATION HEPATITIS B: (NOTE) (test code = 90218) INTERPRETATION HEPATITIS C: (NOTE) (test code = 91646) ACUTE HEPATITIS [id number] 00:00:00 Test Item Value Reference Range Interpretation Comments HEPATITIS A IgM (test code = NON-REACTIVE 16211) HEPATITIS B CORE IgM (test code NON-REACTIVE = 4644) HEPATITIS B SURF AG (test code = NON-REACTIVE 2739) HEPATITIS C ANTIBODY (test code NON-REACTIVE = 4675) INTERPRETATION HEPATITIS A: (NOTE) (test code = 2552) INTERPRETATION HEPATITIS B: (NOTE) (test code = 35959) INTERPRETATION HEPATITIS C: (NOTE) (test code = 00907) [id number] 00:00:00 Test Item Value Reference Range Interpretation Comments RPR RESULT (test code = NON-REACTIVE 3501) RPR TITER (test code = 3500) NOT INDIC. TITER [id number] 00:00:00 Test Item Value Reference Range Interpretation Comments RPR RESULT (test code = NON-REACTIVE 3501) RPR TITER (test code = 3500) NOT INDIC. TITER [id number] 00:00:00 Test Item Value Reference Range Interpretation Comments RPR RESULT (test code = NON-REACTIVE 3501) RPR TITER (test code = 3500) NOT INDIC. TITER HIV AB/AG COMBO RFLX [id number] 00:00:00 Test Item Value Reference Range Interpretation Comments HIV 1/2 4TH GEN, RFLX CONF (test NON-REACTIVE code = 3514) HIV AB/AG COMBO RFLX [id number] 00:00:00 Test Item Value Reference Range Interpretation Comments HIV 1/2 4TH GEN, RFLX CONF (test NON-REACTIVE code = 3514) ACUTE HEPATITIS [id number] 00:00:00 Test Item Value Reference Range Interpretation Comments HEPATITIS A IgM (test code = NON-REACTIVE 63612) HEPATITIS B CORE IgM (test code NON-REACTIVE = 4644) HEPATITIS B SURF AG (test code = NON-REACTIVE 2739) HEPATITIS C ANTIBODY (test code NON-REACTIVE = 4675) INTERPRETATION HEPATITIS A: (NOTE) (test code = 2552) INTERPRETATION HEPATITIS B: (NOTE) (test code = 47856) INTERPRETATION HEPATITIS C: (NOTE) (test code = 49010) ACUTE HEPATITIS [id number] 00:00:00 Test Item Value Reference Range Interpretation Comments HEPATITIS A IgM (test code = NON-REACTIVE 35034) HEPATITIS B CORE IgM (test code NON-REACTIVE = 4644) HEPATITIS B SURF AG (test code = NON-REACTIVE 2739) HEPATITIS C ANTIBODY (test code NON-REACTIVE = 4675) INTERPRETATION HEPATITIS A: (NOTE) (test code = 2552) INTERPRETATION HEPATITIS B: (NOTE) (test code = 47225) INTERPRETATION HEPATITIS C: (NOTE) (test code = 89171) [id number] 00:00:00 Test Item Value Reference Range Interpretation Comments RPR RESULT (test code = NON-REACTIVE 3501) RPR TITER (test code = 3500) NOT INDIC. TITER [id number] 00:00:00 Test Item Value Reference Range Interpretation Comments RPR RESULT (test code = NON-REACTIVE 3501) RPR TITER (test code = 3500) NOT INDIC. TITER [id number] 00:00:00 Test Item Value Reference Range Interpretation Comments RPR RESULT (test code = NON-REACTIVE 3501) RPR TITER (test code = 3500) NOT INDIC. TITER HIV AB/AG COMBO RFLX [id number] 00:00:00 Test Item Value Reference Range Interpretation Comments HIV 1/2 4TH GEN, RFLX CONF (test NON-REACTIVE code = 3514) HIV AB/AG COMBO RFLX [id number] 00:00:00 Test Item Value Reference Range Interpretation Comments HIV 1/2 4TH GEN, RFLX CONF (test NON-REACTIVE code = 3514) ACUTE HEPATITIS [id number] 00:00:00 Test Item Value Reference Range Interpretation Comments HEPATITIS A IgM (test code = NON-REACTIVE 46294) HEPATITIS B CORE IgM (test code NON-REACTIVE = 4644) HEPATITIS B SURF AG (test code = NON-REACTIVE 2739) HEPATITIS C ANTIBODY (test code NON-REACTIVE = 4675) INTERPRETATION HEPATITIS A: (NOTE) (test code = 2552) INTERPRETATION HEPATITIS B: (NOTE) (test code = 42100) INTERPRETATION HEPATITIS C: (NOTE) (test code = 70343) ACUTE HEPATITIS [id number] 00:00:00 Test Item Value Reference Range Interpretation Comments HEPATITIS A IgM (test code = NON-REACTIVE 63276) HEPATITIS B CORE IgM (test code NON-REACTIVE = 4644) HEPATITIS B SURF AG (test code = NON-REACTIVE 2739) HEPATITIS C ANTIBODY (test code NON-REACTIVE = 4675) INTERPRETATION HEPATITIS A: (NOTE) (test code = 2552) INTERPRETATION HEPATITIS B: (NOTE) (test code = 58062) INTERPRETATION HEPATITIS C: (NOTE) (test code = 62252) [id number] 00:00:00 Test Item Value Reference Range Interpretation Comments RPR RESULT (test code = NON-REACTIVE 3501) RPR TITER (test code = 3500) NOT INDIC. TITER [id number] 00:00:00 Test Item Value Reference Range Interpretation Comments RPR RESULT (test code = NON-REACTIVE 3501) RPR TITER (test code = 3500) NOT INDIC. TITER [id number] 00:00:00 Test Item Value Reference Range Interpretation Comments RPR RESULT (test code = NON-REACTIVE 3501) RPR TITER (test code = 3500) NOT INDIC. TITER HIV AB/AG COMBO RFLX [id number] 00:00:00 Test Item Value Reference Range Interpretation Comments HIV 1/2 4TH GEN, RFLX CONF (test NON-REACTIVE code = 3514) HIV AB/AG COMBO RFLX [id number] 00:00:00 Test Item Value Reference Range Interpretation Comments HIV 1/2 4TH GEN, RFLX CONF (test NON-REACTIVE code = 3514) SARS-CoV-2 (COVID-19) by RT-PCR (HIGH RISK)2021-06-07 00:00:00 Test Item Value Reference Range Interpretation Comments SARS-CoV-2 INTERPRETATION (test NEGATIVE code = 91553) SOURCE (test code = 36204) NOT SPECIFIED SARS-CoV-2 (COVID-19) by RT-PCR (HIGH RISK)2021-06-07 00:00:00 Test Item Value Reference Range Interpretation Comments SARS-CoV-2 INTERPRETATION (test NEGATIVE code = 58370) SOURCE (test code = 98475) NOT SPECIFIED SARS-CoV-2 (COVID-19) by RT-PCR (HIGH RISK)2021-06-07 00:00:00 Test Item Value Reference Range Interpretation Comments SARS-CoV-2 INTERPRETATION (test NEGATIVE code = 06434) SOURCE (test code = 19974) NOT SPECIFIED SARS-CoV-2 (COVID-19) by RT-PCR (HIGH RISK)2021-06-07 00:00:00 Test Item Value Reference Range Interpretation Comments SARS-CoV-2 INTERPRETATION (test NEGATIVE code = 05654) SOURCE (test code = 23860) NOT SPECIFIED SARS-CoV-2 (COVID-19) by RT-PCR (HIGH RISK)2021-06-07 00:00:00 Test Item Value Reference Range Interpretation Comments SARS-CoV-2 INTERPRETATION (test NEGATIVE code = 44725) SOURCE (test code = 22941) NOT SPECIFIED SARS-CoV-2 (COVID-19) by RT-PCR (HIGH RISK)2021-06-07 00:00:00 Test Item Value Reference Range Interpretation Comments SARS-CoV-2 INTERPRETATION (test NEGATIVE code = 39045) SOURCE (test code = 55904) NOT SPECIFIED CULTURE, [id number] 00:00:00 Test Item Value Reference Range Interpretation Comments CULTURE, URINE (test SPECIMEN NUMBER: code = 31218) [id number] CULTURE, [id number] 00:00:00 Test Item Value Reference Range Interpretation Comments CULTURE, URINE (test SPECIMEN NUMBER: code = 48655) [id number] CULTURE, [id number] 00:00:00 Test Item Value Reference Range Interpretation Comments CULTURE, URINE (test SPECIMEN NUMBER: code = 06976) [id number] CULTURE, [id number] 00:00:00 Test Item Value Reference Range Interpretation Comments CULTURE, URINE (test SPECIMEN NUMBER: code = 67493) [id number] CULTURE, [id number] 00:00:00 Test Item Value Reference Range Interpretation Comments CULTURE, URINE (test SPECIMEN NUMBER: code = 44612) [id number] CULTURE, [id number] 00:00:00 Test Item Value Reference Range Interpretation Comments CULTURE, URINE (test SPECIMEN NUMBER: code = 99265) [id number] GC, AMPLIFIED, [id number] 00:00:00 Test Item Value Reference Range Interpretation Comments GONORRHEA, NAAT (test code = 77164) NEGATIVE GC, AMPLIFIED, [id number] 00:00:00 Test Item Value Reference Range Interpretation Comments GONORRHEA, NAAT (test code = 05753) NEGATIVE [id number] 00:00:00 Test Item Value Reference Range Interpretation Comments RPR RESULT (test code = NON-REACTIVE 3501) RPR TITER (test code = 3500) NOT INDIC. TITER [id number] 00:00:00 Test Item Value Reference Range Interpretation Comments RPR RESULT (test code = NON-REACTIVE 3501) RPR TITER (test code = 3500) NOT INDIC. TITER [id number] 00:00:00 Test Item Value Reference Range Interpretation Comments RPR RESULT (test code = NON-REACTIVE 3501) RPR TITER (test code = 3500) NOT INDIC. TITER HIV AB/AG COMBO RFLX [id number] 00:00:00 Test Item Value Reference Range Interpretation Comments HIV 1/2 4TH GEN, RFLX CONF (test NON-REACTIVE code = 3514) HIV AB/AG COMBO RFLX [id number] 00:00:00 Test Item Value Reference Range Interpretation Comments HIV 1/2 4TH GEN, RFLX CONF (test NON-REACTIVE code = 3514) ACUTE HEPATITIS [id number] 00:00:00 Test Item Value Reference Range Interpretation Comments HEPATITIS A IgM (test code = NON-REACTIVE 10898) HEPATITIS B CORE IgM (test code NON-REACTIVE = 4644) HEPATITIS B SURF AG (test code = NON-REACTIVE 2739) HEPATITIS C ANTIBODY (test code NON-REACTIVE = 4675) INTERPRETATION HEPATITIS A: (NOTE) (test code = 2552) INTERPRETATION HEPATITIS B: (NOTE) (test code = 16138) INTERPRETATION HEPATITIS C: (NOTE) (test code = 81546) ACUTE HEPATITIS [id number] 00:00:00 Test Item Value Reference Range Interpretation Comments HEPATITIS A IgM (test code = NON-REACTIVE 82593) HEPATITIS B CORE IgM (test code NON-REACTIVE = 4644) HEPATITIS B SURF AG (test code = NON-REACTIVE 2739) HEPATITIS C ANTIBODY (test code NON-REACTIVE = 4675) INTERPRETATION HEPATITIS A: (NOTE) (test code = 2552) INTERPRETATION HEPATITIS B: (NOTE) (test code = 69231) INTERPRETATION HEPATITIS C: (NOTE) (test code = 41437) CHLAMYDIA, AMPLIFIED, [id number] 00:00:00 Test Item Value Reference Range Interpretation Comments CHLAMYDIA, NAAT (test code = 35776) NEGATIVE CHLAMYDIA, AMPLIFIED, [id number] 00:00:00 Test Item Value Reference Range Interpretation Comments CHLAMYDIA, NAAT (test code = 72451) NEGATIVE GC, AMPLIFIED, [id number] 00:00:00 Test Item Value Reference Range Interpretation Comments GONORRHEA, NAAT (test code = 21606) NEGATIVE GC, AMPLIFIED, [id number] 00:00:00 Test Item Value Reference Range Interpretation Comments GONORRHEA, NAAT (test code = 65238) NEGATIVE [id number] 00:00:00 Test Item Value Reference Range Interpretation Comments RPR RESULT (test code = NON-REACTIVE 3501) RPR TITER (test code = 3500) NOT INDIC. TITER [id number] 00:00:00 Test Item Value Reference Range Interpretation Comments RPR RESULT (test code = NON-REACTIVE 3501) RPR TITER (test code = 3500) NOT INDIC. TITER [id number] 00:00:00 Test Item Value Reference Range Interpretation Comments RPR RESULT (test code = NON-REACTIVE 3501) RPR TITER (test code = 3500) NOT INDIC. TITER HIV AB/AG COMBO RFLX [id number] 00:00:00 Test Item Value Reference Range Interpretation Comments HIV 1/2 4TH GEN, RFLX CONF (test NON-REACTIVE code = 3514) HIV AB/AG COMBO RFLX [id number] 00:00:00 Test Item Value Reference Range Interpretation Comments HIV 1/2 4TH GEN, RFLX CONF (test NON-REACTIVE code = 3514) ACUTE HEPATITIS [id number] 00:00:00 Test Item Value Reference Range Interpretation Comments HEPATITIS A IgM (test code = NON-REACTIVE 48124) HEPATITIS B CORE IgM (test code NON-REACTIVE = 4644) HEPATITIS B SURF AG (test code = NON-REACTIVE 0919) HEPATITIS C ANTIBODY (test code NON-REACTIVE = 4675) INTERPRETATION HEPATITIS A: (NOTE) (test code = 2552) INTERPRETATION HEPATITIS B: (NOTE) (test code = 94948) INTERPRETATION HEPATITIS C: (NOTE) (test code = 46108) ACUTE HEPATITIS [id number] 00:00:00 Test Item Value Reference Range Interpretation Comments HEPATITIS A IgM (test code = NON-REACTIVE 50986) HEPATITIS B CORE IgM (test code NON-REACTIVE = 4644) HEPATITIS B SURF AG (test code = NON-REACTIVE 2739) HEPATITIS C ANTIBODY (test code NON-REACTIVE = 4675) INTERPRETATION HEPATITIS A: (NOTE) (test code = 2552) INTERPRETATION HEPATITIS B: (NOTE) (test code = 22497) INTERPRETATION HEPATITIS C: (NOTE) (test code = 30065) CHLAMYDIA, AMPLIFIED, [id number] 00:00:00 Test Item Value Reference Range Interpretation Comments CHLAMYDIA, NAAT (test code = 94045) NEGATIVE CHLAMYDIA, AMPLIFIED, [id number] 00:00:00 Test Item Value Reference Range Interpretation Comments CHLAMYDIA, NAAT (test code = 61643) NEGATIVE GC, AMPLIFIED, [id number] 00:00:00 Test Item Value Reference Range Interpretation Comments GONORRHEA, NAAT (test code = 82733) NEGATIVE GC, AMPLIFIED, [id number] 00:00:00 Test Item Value Reference Range Interpretation Comments GONORRHEA, NAAT (test code = 25926) NEGATIVE [id number] 00:00:00 Test Item Value Reference Range Interpretation Comments RPR RESULT (test code = NON-REACTIVE 3501) RPR TITER (test code = 3500) NOT INDIC. TITER [id number] 00:00:00 Test Item Value Reference Range Interpretation Comments RPR RESULT (test code = NON-REACTIVE 3501) RPR TITER (test code = 3500) NOT INDIC. TITER [id number] 00:00:00 Test Item Value Reference Range Interpretation Comments RPR RESULT (test code = NON-REACTIVE 3501) RPR TITER (test code = 3500) NOT INDIC. TITER HIV AB/AG COMBO RFLX [id number] 00:00:00 Test Item Value Reference Range Interpretation Comments HIV 1/2 4TH GEN, RFLX CONF (test NON-REACTIVE code = 3514) HIV AB/AG COMBO RFLX [id number] 00:00:00 Test Item Value Reference Range Interpretation Comments HIV 1/2 4TH GEN, RFLX CONF (test NON-REACTIVE code = 3514) ACUTE HEPATITIS [id number] 00:00:00 Test Item Value Reference Range Interpretation Comments HEPATITIS A IgM (test code = NON-REACTIVE 10434) HEPATITIS B CORE IgM (test code NON-REACTIVE = 4644) HEPATITIS B SURF AG (test code = NON-REACTIVE 2739) HEPATITIS C ANTIBODY (test code NON-REACTIVE = 4675) INTERPRETATION HEPATITIS A: (NOTE) (test code = 2552) INTERPRETATION HEPATITIS B: (NOTE) (test code = 15126) INTERPRETATION HEPATITIS C: (NOTE) (test code = 52729) ACUTE HEPATITIS [id number] 00:00:00 Test Item Value Reference Range Interpretation Comments HEPATITIS A IgM (test code = NON-REACTIVE 01435) HEPATITIS B CORE IgM (test code NON-REACTIVE = 4644) HEPATITIS B SURF AG (test code = NON-REACTIVE 2739) HEPATITIS C ANTIBODY (test code NON-REACTIVE = 4675) INTERPRETATION HEPATITIS A: (NOTE) (test code = 2552) INTERPRETATION HEPATITIS B: (NOTE) (test code = 87857) INTERPRETATION HEPATITIS C: (NOTE) (test code = 92600) CHLAMYDIA, AMPLIFIED, [id number] 00:00:00 Test Item Value Reference Range Interpretation Comments CHLAMYDIA, NAAT (test code = 13865) NEGATIVE CHLAMYDIA, AMPLIFIED, [id number] 00:00:00 Test Item Value Reference Range Interpretation Comments CHLAMYDIA, NAAT (test code = 97850) NEGATIVE GC, AMPLIFIED, [id number] 00:00:00 Test Item Value Reference Range Interpretation Comments GONORRHEA, NAAT (test code = 28127) NEGATIVE GC, AMPLIFIED, [id number] 00:00:00 Test Item Value Reference Range Interpretation Comments GONORRHEA, NAAT (test code = 52512) NEGATIVE ACUTE HEPATITIS [id number] 00:00:00 Test Item Value Reference Range Interpretation Comments HEPATITIS A IgM (test code = NON-REACTIVE 33548) HEPATITIS B CORE IgM (test code NON-REACTIVE = 4644) HEPATITIS B SURF AG (test code = NON-REACTIVE 2739) HEPATITIS C ANTIBODY (test code NON-REACTIVE = 4675) INTERPRETATION HEPATITIS A: (NOTE) (test code = 2552) INTERPRETATION HEPATITIS B: (NOTE) (test code = 39698) INTERPRETATION HEPATITIS C: (NOTE) (test code = 96624) ACUTE HEPATITIS [id number] 00:00:00 Test Item Value Reference Range Interpretation Comments HEPATITIS A IgM (test code = NON-REACTIVE 48371) HEPATITIS B CORE IgM (test code NON-REACTIVE = 4644) HEPATITIS B SURF AG (test code = NON-REACTIVE 2739) HEPATITIS C ANTIBODY (test code NON-REACTIVE = 4675) INTERPRETATION HEPATITIS A: (NOTE) (test code = 2552) INTERPRETATION HEPATITIS B: (NOTE) (test code = 56422) INTERPRETATION HEPATITIS C: (NOTE) (test code = 05630) TRICHOMONAS, URINE, [id number] 00:00:00 Test Item Value Reference Range Interpretation Comments TRICHOMONAS, NAAT (test code = NEGATIVE 79544) TRICHOMONAS, URINE, [id number] 00:00:00 Test Item Value Reference Range Interpretation Comments TRICHOMONAS, NAAT (test code = NEGATIVE 20047) [id number] 00:00:00 Test Item Value Reference Range Interpretation Comments RPR RESULT (test code = NON-REACTIVE 3501) RPR TITER (test code = 3500) NOT INDIC. TITER [id number] 00:00:00 Test Item Value Reference Range Interpretation Comments RPR RESULT (test code = NON-REACTIVE 3501) RPR TITER (test code = 3500) NOT INDIC. TITER [id number] 00:00:00 Test Item Value Reference Range Interpretation Comments RPR RESULT (test code = NON-REACTIVE 3501) RPR TITER (test code = 3500) NOT INDIC. TITER HIV AB/AG COMBO RFLX [id number] 00:00:00 Test Item Value Reference Range Interpretation Comments HIV 1/2 4TH GEN, RFLX CONF (test NON-REACTIVE code = 3514) HIV AB/AG COMBO RFLX [id number] 00:00:00 Test Item Value Reference Range Interpretation Comments HIV 1/2 4TH GEN, RFLX CONF (test NON-REACTIVE code = 3514) CHLAMYDIA, AMPLIFIED, [id number] 00:00:00 Test Item Value Reference Range Interpretation Comments CHLAMYDIA, NAAT (test code = 82599) POSITIVE CHLAMYDIA, AMPLIFIED, [id number] 00:00:00 Test Item Value Reference Range Interpretation Comments CHLAMYDIA, NAAT (test code = 31460) POSITIVE GC, AMPLIFIED, [id number] 00:00:00 Test Item Value Reference Range Interpretation Comments GONORRHEA, NAAT (test code = 82660) NEGATIVE GC, AMPLIFIED, [id number] 00:00:00 Test Item Value Reference Range Interpretation Comments GONORRHEA, NAAT (test code = 47225) NEGATIVE ACUTE HEPATITIS [id number] 00:00:00 Test Item Value Reference Range Interpretation Comments HEPATITIS A IgM (test code = NON-REACTIVE 46128) HEPATITIS B CORE IgM (test code NON-REACTIVE = 4644) HEPATITIS B SURF AG (test code = NON-REACTIVE 2739) HEPATITIS C ANTIBODY (test code NON-REACTIVE = 4675) INTERPRETATION HEPATITIS A: (NOTE) (test code = 2552) INTERPRETATION HEPATITIS B: (NOTE) (test code = 54177) INTERPRETATION HEPATITIS C: (NOTE) (test code = 13978) ACUTE HEPATITIS [id number] 00:00:00 Test Item Value Reference Range Interpretation Comments HEPATITIS A IgM (test code = NON-REACTIVE 49600) HEPATITIS B CORE IgM (test code NON-REACTIVE = 4644) HEPATITIS B SURF AG (test code = NON-REACTIVE 2739) HEPATITIS C ANTIBODY (test code NON-REACTIVE = 4675) INTERPRETATION HEPATITIS A: (NOTE) (test code = 2552) INTERPRETATION HEPATITIS B: (NOTE) (test code = 22246) INTERPRETATION HEPATITIS C: (NOTE) (test code = 12257) TRICHOMONAS, URINE, [id number] 00:00:00 Test Item Value Reference Range Interpretation Comments TRICHOMONAS, NAAT (test code = NEGATIVE 93078) TRICHOMONAS, URINE, [id number] 00:00:00 Test Item Value Reference Range Interpretation Comments TRICHOMONAS, NAAT (test code = NEGATIVE 45907) [id number] 00:00:00 Test Item Value Reference Range Interpretation Comments RPR RESULT (test code = NON-REACTIVE 3501) RPR TITER (test code = 3500) NOT INDIC. TITER [id number] 00:00:00 Test Item Value Reference Range Interpretation Comments RPR RESULT (test code = NON-REACTIVE 3501) RPR TITER (test code = 3500) NOT INDIC. TITER [id number] 00:00:00 Test Item Value Reference Range Interpretation Comments RPR RESULT (test code = NON-REACTIVE 3501) RPR TITER (test code = 3500) NOT INDIC. TITER HIV AB/AG COMBO RFLX [id number] 00:00:00 Test Item Value Reference Range Interpretation Comments HIV 1/2 4TH GEN, RFLX CONF (test NON-REACTIVE code = 3514) HIV AB/AG COMBO RFLX [id number] 00:00:00 Test Item Value Reference Range Interpretation Comments HIV 1/2 4TH GEN, RFLX CONF (test NON-REACTIVE code = 3514) CHLAMYDIA, AMPLIFIED, [id number] 00:00:00 Test Item Value Reference Range Interpretation Comments CHLAMYDIA, NAAT (test code = 19334) POSITIVE CHLAMYDIA, AMPLIFIED, [id number] 00:00:00 Test Item Value Reference Range Interpretation Comments CHLAMYDIA, NAAT (test code = 27705) POSITIVE GC, AMPLIFIED, [id number] 00:00:00 Test Item Value Reference Range Interpretation Comments GONORRHEA, NAAT (test code = 45896) NEGATIVE GC, AMPLIFIED, [id number] 00:00:00 Test Item Value Reference Range Interpretation Comments GONORRHEA, NAAT (test code = 45636) NEGATIVE ACUTE HEPATITIS [id number] 00:00:00 Test Item Value Reference Range Interpretation Comments HEPATITIS A IgM (test code = NON-REACTIVE 60098) HEPATITIS B CORE IgM (test code NON-REACTIVE = 4644) HEPATITIS B SURF AG (test code = NON-REACTIVE 2739) HEPATITIS C ANTIBODY (test code NON-REACTIVE = 4675) INTERPRETATION HEPATITIS A: (NOTE) (test code = 2552) INTERPRETATION HEPATITIS B: (NOTE) (test code = 81905) INTERPRETATION HEPATITIS C: (NOTE) (test code = 54460) ACUTE HEPATITIS [id number] 00:00:00 Test Item Value Reference Range Interpretation Comments HEPATITIS A IgM (test code = NON-REACTIVE 99952) HEPATITIS B CORE IgM (test code NON-REACTIVE = 4644) HEPATITIS B SURF AG (test code = NON-REACTIVE 2739) HEPATITIS C ANTIBODY (test code NON-REACTIVE = 4675) INTERPRETATION HEPATITIS A: (NOTE) (test code = 2552) INTERPRETATION HEPATITIS B: (NOTE) (test code = 56973) INTERPRETATION HEPATITIS C: (NOTE) (test code = 65953) TRICHOMONAS, URINE, [id number] 00:00:00 Test Item Value Reference Range Interpretation Comments TRICHOMONAS, NAAT (test code = NEGATIVE 00917) TRICHOMONAS, URINE, [id number] 00:00:00 Test Item Value Reference Range Interpretation Comments TRICHOMONAS, NAAT (test code = NEGATIVE 37418) [id number] 00:00:00 Test Item Value Reference Range Interpretation Comments RPR RESULT (test code = NON-REACTIVE 3501) RPR TITER (test code = 3500) NOT INDIC. TITER [id number] 00:00:00 Test Item Value Reference Range Interpretation Comments RPR RESULT (test code = NON-REACTIVE 3501) RPR TITER (test code = 3500) NOT INDIC. TITER [id number] 00:00:00 Test Item Value Reference Range Interpretation Comments RPR RESULT (test code = NON-REACTIVE 3501) RPR TITER (test code = 3500) NOT INDIC. TITER HIV AB/AG COMBO RFLX [id number] 00:00:00 Test Item Value Reference Range Interpretation Comments HIV 1/2 4TH GEN, RFLX CONF (test NON-REACTIVE code = 3514) HIV AB/AG COMBO RFLX [id number] 00:00:00 Test Item Value Reference Range Interpretation Comments HIV 1/2 4TH GEN, RFLX CONF (test NON-REACTIVE code = 3514) CHLAMYDIA, AMPLIFIED, [id number] 00:00:00 Test Item Value Reference Range Interpretation Comments CHLAMYDIA, NAAT (test code = 25745) POSITIVE CHLAMYDIA, AMPLIFIED, [id number] 00:00:00 Test Item Value Reference Range Interpretation Comments CHLAMYDIA, NAAT (test code = 54763) POSITIVE XR CHEST 1 [id number] 01:51:07 No acute cardiopulmonary abnormality is present. Preliminary Report Dictated by Resident: Judy Collins MD., have reviewed this study and agree with theabove report.XR CHEST 1 VW HISTORY: chest pain COMPARISON: None available FINDINGS: The lungs are clear. No focal consolidation is present. No pleural effusion or pneumothorax is present. The cardiomediastinal silhouette is normal. The osseous structures are unremarkable. [facility], Radiant Results Inft - 08/26/2020 7:52 PM CSTXR CHEST 1 VWHISTORY: chest pain COMPARISON: None availableFINDINGS:The lungs are clear. No focal consolidation is present. No pleural effusion or pneumothorax is present.The cardiomediastinal silhouetteis normal.The osseous structures are unremarkable.IMPRESSIONNo acute cardiopulmonary abnormality is p resent.Preliminary Report Dictated by Resident: Judy Alicea MD., have reviewed this study and agree with theabove report.[facility] / [facility] - DRUG SCREEN [id number] 00:46:00 Test Item Value Reference Range Interpretation Comments BENZO U (test code = Negative Negative 5328045143) JESSICA U (test code = Negative Negative 1431175383) AMPHET (test code = Negative Negative 0237914327) THC (test code = Negative Negative 2592038484) METHADONE (test code = Negative Negative 1447515296) Meth U (test code = Negative Negative 8377583861) OPIATES (test code = Negative Negative 6403427940) Cocaine Metabolite (test Negative Negative code = 7294579246) PROPOXY (test code = Negative Negative 1718049230) Tric U (test code = Negative Negative 7750149183) PCP (test code = Negative Negative 6352407769) OXYCOD (test code = Negative Negative 5185462390) DARIA (test code = DARIA) Urine Drug Cutoff Ranges Benzodiazepines: ? ? 150 ng/mLBarbiturates: ?200 ng/mLAmphetamine: ? 500 ng/mLCannabinoids: ?50 ?ng/mLMethadone: ? 200 ng/mLMethamphetamine: ? ? 500 ng/mL Opiates: ? 100 ng/mL or 2000 ng/mLCocaine: ? 150 ng/mLPropoxyphene: ?300 ng/mLTricyclics: ?300 ng/mLOxycodone: ? 100 ng/mLPCP: ? 25 ?ng/mL The results are to be used only for medical (i.e., treatment) purposes. Unconfirmed screening results must not be used for non-medical purposes (e.g., employment testing, legal testing). Lab Interpretation (test Normal code = 84789-9) [facility] Test Item Value Reference Range Interpretation Comments APPEARANCE (test code = Cloudy Clear A 9775456439) COLOR (test code = Yellow Yellow 4832617183) PH (test code = 4.8-8.0 4727085453) SP GRAVITY (test code = 1.003-1.030 1716406054) GLU U QUAL (test code = Normal Normal 2754027456) BLOOD (test code = Negative Negative INTERFERE NCE FROM 7099602445) ASCORBIC ACID M AY CAUSE FALSE NEG ATIVE RESULT KETONES (test code = Negative Negative 7846489921) PROTEIN (test code = 30 mg/dL Negative A 2887-8) UROBILIN (test code = 4.0 mg/dL Normal A 5522038728) BILIRUBIN (test code = Negative Negative 9425634351) NITRITE (test code = Negative Negative 9814003936) LEUK JOSE G (test code = Negative Negative 9734484428) RBC/HPF (test code = See_Comment [Autom ated message] 8992176976) The system [employer] generated this result transmitted ref erence range: 0 - 3 HP F. The reference range was not used to int erpret this result as normal/abnormal . WBC/HPF (test code = <1 See_Comment [Autom ated message] 0250370052) The system [employer] generated this result transmitted ref erence range: 0 - 5 HP F. The reference range was not used to int erpret this result as normal/abnormal . BACTERIA (test code = Moderate Negative A 9369950499) MUCOUS (test code = Slight Negative LPF A 2683542916) Lab Interpretation Abnormal (test code = 42631-5) [facility] [id number] 00:38:00 Test Item Value Reference Range Interpretation Comments TROPONIN I (test <0.012 See_Comment [Automated code = 0368302014) message] The system which generated this result transmitted reference range : <=0.034 ng/mL. The reference range was not used to interpr et this result as normal/abnormal . DARIA (test code = Equal or Less than DARIA) 0.034 ng/ml---Normal ?Note: Cardiac troponin begins to rise 3-4 hours after the onset of ischemia. Repeat in 4-6 hours if the sample was drawn within 3-4 hours of the onset of the symptom and found normal. Between 0.035 and 0.120 ng/mL--- Borderline. Questionable myocardial injury or necrosis ? ?Note: Serial measurement may be necessary to confirm or exclude the diagnosis of myocardial injury or necrosis; Clinical correlation (symptoms, EKGs, imaging studies, and others) required; Repeat in 4-6 hours if clinically indicated. ? Equal or Higher than 0.121 ng/mL---Abnormal. Myocardial Injury or Necrosis Likely ? Biotin has been reported to cause a negative bias, interpret results relative to patient's use of biotin. ? Lab Interpretation Normal (test code = 91403-7) [facility]. METABOLIC PANEL (79782)2020-08-27 00:29:00 Test Item Value Reference Range Interpretation Comments NA (test code = 137 mmol/L 135-145 3928218822) K (test code = 4.4 mmol/L 3.5-5 6217617960) CL (test code = 106 mmol/L 98-108 9376146386) CO2 TOTAL (test code = 25 mmol/L 23-31 8081346535) AGAP (test code = 2-16 0337792390) BUN (test code = 12 mg/dL 7-23 9431717095) GLUCOSE (test code = 92 mg/dL 70-110 3967434504) CREATININE (test code 0.88 mg/dL 0.6-1.25 = 5325641744) TOTAL BILI (test code 1.0 mg/dL 0.1-1.1 = 9704129980) CALCIUM (test code = 9.5 mg/dL 8.6-10.6 1325891068) T PROTEIN (test code = 7.1 g/dL 6.3-8.2 0153923197) ALBUMIN (test code = 4.2 g/dL 3.5-5 5016602702) ALK PHOS (test code = 40 U/L 34-122 3029045482) ALTv (test code = 13 U/L 5-50 1742-6) AST(SGOT) (test code = 21 U/L 13-40 4294301352) eGFR Calculation mL/min/1.73m2 (Non-) (test code = 1970031980) eGFR Calculation mL/min/1.73m2 () (test code = 5635379592) DARIA (test code = DARIA) Association of Glomerular Filtration Rate (GFR) and Staging of Kidney Disease* + -+ + ---+| GFR (mL/min/1.73 m2) ?| With Kidney Damage ?| ?Without Kidney Damage+ -------+ ------+ ---------+| ?>90 ?| ?Stage one ?| ? Normal ?+ --+ -+ ----+| ?60-89 ?| ?Stage two ?| ? Decreased GFR ? + -+ + ---+| ?30-59 ?| ?Stage three ?| ? Stage three ? + -+ + ---+| ?15-29 ?| ?Stage four ? | ? Stage four ?+ --+ -+ ----+| ?<15 (or dialysis) ? ?| ?Stage five ? | ? Stage five ?+ --+ -+ ----+ *Each stage assumes the associated GFR level has been in effect for at least three months. ?Stages 1 to 5, with or without kidney disease, indicate chronic kidney disease. Notes: Determination of stages one and two (with eGFR >59mL/min/1.73 m2) requires estimation of kidney damage for at least three months as defined by structural or functional abnormalities of the kidney, manifested by either:Pathological abnormalities or Markers of kidney damage (including abnormalities in the composition of the blood or urine or abnormalities in imaging tests). [facility]2020-[facility]06 00:29:00 Test Item Value Reference Range Interpretation Comments MAGNESIUM (test code = 7308426107) 1.8 mg/dL 1.7-2.4 Lab Interpretation (test code = Normal 05215-0) [facility]2020-11-[facility] 00:28:00 Test Item Value Reference Range Interpretation Comments LIPASE (test code = 2977349164) 60 U/L 0-220 Lab Interpretation (test code = Normal 40825-5) [facility] WITH [id number] 00:17:00 Test Item Value Reference Range Interpretation Comments WBC (test code = See_Comment L [Automated 6690-2) message] The sy stem which generated this result transmitted reference range : 4.20 - 10.70 10*3/?L. The reference range was not used to interpret this result as normal/abnormal . RBC (test code = See_Comment [Automated 789-8) message] The sy stem which generated this result transmitted reference range : 4.26 - 5.52 10*6/?L. The reference range was not used to interpret this result as normal/abnormal . HGB (test code = 13.7 g/dL 12.2-16.4 718-7) HCT (test code = 41.6 % 38.4-49.3 4544-3) MCV (test code = 86.8 fL 81.7-95.6 787-2) MCH (test code = 28.6 pg 26.1-32.7 785-6) MCHC (test code = 32.9 g/dL 31.2-35 786-4) RDW-SD (test code = 42.8 fL 38.5-51.6 40422-2) RDW-CV (test code = 13.5 % 12.1-15.4 788-0) PLT (test code = See_Comment H [Automated 777-3) message] The sy stem which generated this result transmitted reference range : 150 - 328 10*3/ ?L. The reference r manpreet was not used to interpret this result as normal/abnormal . MPV (test code = 9.5 fL 9.8-13 L 13738-3) NRBC/100 WBC (test See_Comment [Automat ed code = 3180307180) message] The system which generated this result transmitted reference range : 0.0 - 10.0 /100 WBCs. The refer ence range was not u sed to interpret th is result as normal/abnormal . NRBC x10^3 (test code <0.01 See_Comment [Auto mated = 0813889293) message] The s ystem which generated this result transmitted reference range : 10*3/?L. The reference range was not used to interpret this result as normal/abnormal . GRAN MAT (NEUT) % 60.9 % (test code = 770-8) IMM GRAN % (test code 0.00 % = 2616046391) LYMPH % (test code = 29.8 % 736-9) MONO % (test code = 7.6 % 5905-5) EOS % (test code = 0.5 % 713-8) BASO % (test code = 1.2 % 706-2) GRAN MAT x10^3(ANC) 2.55 10*3/uL 1.99-6.95 (test code = 7800734197) IMM GRAN x10^3 (test <0.03 0-0.06 code = 1110391948) LYMPH x10^3 (test code 1.25 10*3/uL 1.09-3.23 = 731-0) MONO x10^3 (test code 0.32 10*3/uL 0.36-1.02 L = 742-7) EOS x10^3 (test code = <0.03 0.06-0.53 L 711-2) BASO x10^3 (test code 0.05 10*3/uL 0.01-0.09 = 704-7) Lab Interpretation Abnormal (test code = 48967-0) [facility] HospitalCHL[facility], AMPLIFIED, [id number] 00:00:00 Test Item Value Reference Range Interpretation Comments CHLAMYDIA, TMA (test code = 23541) POSITIVE CHLAMYDIA, AMPLIFIED, [id number] 00:00:00 Test Item Value Reference Range Interpretation Comments CHLAMYDIA, TMA (test code = 39625) POSITIVE GC, AMPLIFIED, [id number] 00:00:00 Test Item Value Reference Range Interpretation Comments GONORRHEA, TMA (test code = 22175) NEGATIVE GC, AMPLIFIED, [id number] 00:00:00 Test Item Value Reference Range Interpretation Comments GONORRHEA, TMA (test code = 15999) NEGATIVE CHLAMYDIA, AMPLIFIED, [id number] 00:00:00 Test Item Value Reference Range Interpretation Comments CHLAMYDIA, TMA (test code = 11396) POSITIVE CHLAMYDIA, AMPLIFIED, [id number] 00:00:00 Test Item Value Reference Range Interpretation Comments CHLAMYDIA, TMA (test code = 81515) POSITIVE GC, AMPLIFIED, [id number] 00:00:00 Test Item Value Reference Range Interpretation Comments GONORRHEA, TMA (test code = 60603) NEGATIVE GC, AMPLIFIED, [id number] 00:00:00 Test Item Value Reference Range Interpretation Comments GONORRHEA, TMA (test code = 63298) NEGATIVE CHLAMYDIA, AMPLIFIED, [id number] 00:00:00 Test Item Value Reference Range Interpretation Comments CHLAMYDIA, TMA (test code = 03251) POSITIVE CHLAMYDIA, AMPLIFIED, [id number] 00:00:00 Test Item Value Reference Range Interpretation Comments CHLAMYDIA, TMA (test code = 49773) POSITIVE GC, AMPLIFIED, [id number] 00:00:00 Test Item Value Reference Range Interpretation Comments GONORRHEA, TMA (test code = 56249) NEGATIVE GC, AMPLIFIED, [id number] 00:00:00 Test Item Value Reference Range Interpretation Comments GONORRHEA, TMA (test code = 34251) NEGATIVE GC AND CHLAMYDIA, AMPLIFIED, [id number] 00:00:00 Test Item Value Reference Range Interpretation Comments GONORRHEA, TMA (test code = 23797) NEGATIVE CHLAMYDIA, TMA (test code = 58329) NEGATIVE GC AND CHLAMYDIA, AMPLIFIED, [id number] 00:00:00 Test Item Value Reference Range Interpretation Comments GONORRHEA, TMA (test code = 94002) NEGATIVE CHLAMYDIA, TMA (test code = 74632) NEGATIVE TRICHOMONAS, MALE [ADDED]2020-02-23 00:00:00 Test Item Value Reference Range Interpretation Comments TRICHOMONAS, MALE (test code = NEGATIVE 73666) TRICHOMONAS, MALE [ADDED]2020-02-23 00:00:00 Test Item Value Reference Range Interpretation Comments TRICHOMONAS, MALE (test code = NEGATIVE 43862) GC AND CHLAMYDIA, AMPLIFIED, [id number] 00:00:00 Test Item Value Reference Range Interpretation Comments GONORRHEA, TMA (test code = 52662) NEGATIVE CHLAMYDIA, TMA (test code = 17222) NEGATIVE GC AND CHLAMYDIA, AMPLIFIED, [id number] 00:00:00 Test Item Value Reference Range Interpretation Comments GONORRHEA, TMA (test code = 43678) NEGATIVE CHLAMYDIA, TMA (test code = 16166) NEGATIVE TRICHOMONAS, MALE [ADDED]2020-02-23 00:00:00 Test Item Value Reference Range Interpretation Comments TRICHOMONAS, MALE (test code = NEGATIVE 29030) TRICHOMONAS, MALE [ADDED]2020-02-23 00:00:00 Test Item Value Reference Range Interpretation Comments TRICHOMONAS, MALE (test code = NEGATIVE 48337) GC AND CHLAMYDIA, AMPLIFIED, [id number] 00:00:00 Test Item Value Reference Range Interpretation Comments GONORRHEA, TMA (test code = 72712) NEGATIVE CHLAMYDIA, TMA (test code = 01778) NEGATIVE GC AND CHLAMYDIA, AMPLIFIED, [id number] 00:00:00 Test Item Value Reference Range Interpretation Comments GONORRHEA, TMA (test code = 32594) NEGATIVE CHLAMYDIA, TMA (test code = 51053) NEGATIVE TRICHOMONAS, MALE [ADDED]2020-02-23 00:00:00 Test Item Value Reference Range Interpretation Comments TRICHOMONAS, MALE (test code = NEGATIVE 38589) TRICHOMONAS, MALE [ADDED]2020-02-23 00:00:00 Test Item Value Reference Range Interpretation Comments TRICHOMONAS, MALE (test code = NEGATIVE 54455) GC AND CHLAMYDIA, AMPLIFIED, [id number] 00:00:00 Test Item Value Reference Range Interpretation Comments GONORRHEA, TMA (test code POSITIVE, SEE BELOW = 52939) CHLAMYDIA, TMA (test code POSITIVE, SEE BELOW = 66778) GC AND CHLAMYDIA, AMPLIFIED, [id number] 00:00:00 Test Item Value Reference Range Interpretation Comments GONORRHEA, TMA (test code POSITIVE, SEE BELOW = 92623) CHLAMYDIA, TMA (test code POSITIVE, SEE BELOW = 96769) GC AND CHLAMYDIA, AMPLIFIED, [id number] 00:00:00 Test Item Value Reference Range Interpretation Comments GONORRHEA, TMA (test code POSITIVE, SEE BELOW = 46634) CHLAMYDIA, TMA (test code POSITIVE, SEE BELOW = 04857) GC AND CHLAMYDIA, AMPLIFIED, [id number] 00:00:00 Test Item Value Reference Range Interpretation Comments GONORRHEA, TMA (test code POSITIVE, SEE BELOW = 79872) CHLAMYDIA, TMA (test code POSITIVE, SEE BELOW = 67498) GC AND CHLAMYDIA, AMPLIFIED, [id number] 00:00:00 Test Item Value Reference Range Interpretation Comments GONORRHEA, TMA (test code POSITIVE, SEE BELOW = 66934) CHLAMYDIA, TMA (test code POSITIVE, SEE BELOW = 50245) GC AND CHLAMYDIA, AMPLIFIED, [id number] 00:00:00 Test Item Value Reference Range Interpretation Comments GONORRHEA, TMA (test code POSITIVE, SEE BELOW = 06610) CHLAMYDIA, TMA (test code POSITIVE, SEE BELOW = 39489) [id number] 00:00:00 Test Item Value Reference Range Interpretation Comments RPR RESULT (test code = NON-REACTIVE 3501) RPR TITER (test code = 3500) NOT INDIC. TITER [id number] 00:00:00 Test Item Value Reference Range Interpretation Comments RPR RESULT (test code = NON-REACTIVE 3501) RPR TITER (test code = 3500) NOT INDIC. TITER [id number] 00:00:00 Test Item Value Reference Range Interpretation Comments RPR RESULT (test code = NON-REACTIVE 3501) RPR TITER (test code = 3500) NOT INDIC. TITER HIV AB/AG COMBO RFLX [id number] 00:00:00 Test Item Value Reference Range Interpretation Comments HIV 1/2 4TH GEN, RFLX CONF (test NON-REACTIVE code = 3514) HIV AB/AG COMBO RFLX [id number] 00:00:00 Test Item Value Reference Range Interpretation Comments HIV 1/2 4TH GEN, RFLX CONF (test NON-REACTIVE code = 3514) [id number] 00:00:00 Test Item Value Reference Range Interpretation Comments RPR RESULT (test code = NON-REACTIVE 3501) RPR TITER (test code = 3500) NOT INDIC. TITER [id number] 00:00:00 Test Item Value Reference Range Interpretation Comments RPR RESULT (test code = NON-REACTIVE 3501) RPR TITER (test code = 3500) NOT INDIC. TITER [id number] 00:00:00 Test Item Value Reference Range Interpretation Comments RPR RESULT (test code = NON-REACTIVE 3501) RPR TITER (test code = 3500) NOT INDIC. TITER HIV AB/AG COMBO RFLX [id number] 00:00:00 Test Item Value Reference Range Interpretation Comments HIV 1/2 4TH GEN, RFLX CONF (test NON-REACTIVE code = 3514) HIV AB/AG COMBO RFLX [id number] 00:00:00 Test Item Value Reference Range Interpretation Comments HIV 1/2 4TH GEN, RFLX CONF (test NON-REACTIVE code = 3514) [id number] 00:00:00 Test Item Value Reference Range Interpretation Comments RPR RESULT (test code = NON-REACTIVE 3501) RPR TITER (test code = 3500) NOT INDIC. TITER [id number] 00:00:00 Test Item Value Reference Range Interpretation Comments RPR RESULT (test code = NON-REACTIVE 3501) RPR TITER (test code = 3500) NOT INDIC. TITER [id number] 00:00:00 Test Item Value Reference Range Interpretation Comments RPR RESULT (test code = NON-REACTIVE 3501) RPR TITER (test code = 3500) NOT INDIC. TITER HIV AB/AG COMBO RFLX [id number] 00:00:00 Test Item Value Reference Range Interpretation Comments HIV 1/2 4TH GEN, RFLX CONF (test NON-REACTIVE code = 3514) HIV AB/AG COMBO RFLX [id number] 00:00:00 Test Item Value Reference Range Interpretation Comments HIV 1/2 4TH GEN, RFLX CONF (test NON-REACTIVE code = 3514) CHLAMYDIA, AMPLIFIED, [id number] 00:00:00 Test Item Value Reference Range Interpretation Comments CHLAMYDIA, TMA (test code = 78225) NEGATIVE CHLAMYDIA, AMPLIFIED, [id number] 00:00:00 Test Item Value Reference Range Interpretation Comments CHLAMYDIA, TMA (test code = 76039) NEGATIVE GC, AMPLIFIED, [id number] 00:00:00 Test Item Value Reference Range Interpretation Comments GONORRHEA, TMA (test code = 82518) NEGATIVE GC, AMPLIFIED, [id number] 00:00:00 Test Item Value Reference Range Interpretation Comments GONORRHEA, TMA (test code = 12412) NEGATIVE CHLAMYDIA, AMPLIFIED, [id number] 00:00:00 Test Item Value Reference Range Interpretation Comments CHLAMYDIA, TMA (test code = 23938) NEGATIVE CHLAMYDIA, AMPLIFIED, [id number] 00:00:00 Test Item Value Reference Range Interpretation Comments CHLAMYDIA, TMA (test code = 43565) NEGATIVE GC, AMPLIFIED, [id number] 00:00:00 Test Item Value Reference Range Interpretation Comments GONORRHEA, TMA (test code = 64765) NEGATIVE GC, AMPLIFIED, [id number] 00:00:00 Test Item Value Reference Range Interpretation Comments GONORRHEA, TMA (test code = 35319) NEGATIVE CHLAMYDIA, AMPLIFIED, [id number] 00:00:00 Test Item Value Reference Range Interpretation Comments CHLAMYDIA, TMA (test code = 67497) NEGATIVE CHLAMYDIA, AMPLIFIED, [id number] 00:00:00 Test Item Value Reference Range Interpretation Comments CHLAMYDIA, TMA (test code = 66549) NEGATIVE GC, AMPLIFIED, [id number] 00:00:00 Test Item Value Reference Range Interpretation Comments GONORRHEA, TMA (test code = 15686) NEGATIVE GC, AMPLIFIED, [id number] 00:00:00 Test Item Value Reference Range Interpretation Comments GONORRHEA, TMA (test code = 06316) NEGATIVE CHLAMYDIA, AMPLIFIED, [id number] 00:00:00 Test Item Value Reference Range Interpretation Comments CHLAMYDIA, TMA (test code = 02033) POSITIVE CHLAMYDIA, AMPLIFIED, [id number] 00:00:00 Test Item Value Reference Range Interpretation Comments CHLAMYDIA, TMA (test code = 37312) POSITIVE GC, AMPLIFIED, [id number] 00:00:00 Test Item Value Reference Range Interpretation Comments GONORRHEA, TMA (test code = 10103) NEGATIVE GC, AMPLIFIED, [id number] 00:00:00 Test Item Value Reference Range Interpretation Comments GONORRHEA, TMA (test code = 65000) NEGATIVE CHLAMYDIA, AMPLIFIED, [id number] 00:00:00 Test Item Value Reference Range Interpretation Comments CHLAMYDIA, TMA (test code = 76640) POSITIVE CHLAMYDIA, AMPLIFIED, [id number] 00:00:00 Test Item Value Reference Range Interpretation Comments CHLAMYDIA, TMA (test code = 41744) POSITIVE GC, AMPLIFIED, [id number] 00:00:00 Test Item Value Reference Range Interpretation Comments GONORRHEA, TMA (test code = 59269) NEGATIVE GC, AMPLIFIED, [id number] 00:00:00 Test Item Value Reference Range Interpretation Comments GONORRHEA, TMA (test code = 42476) NEGATIVE CHLAMYDIA, AMPLIFIED, [id number] 00:00:00 Test Item Value Reference Range Interpretation Comments CHLAMYDIA, TMA (test code = 96018) POSITIVE CHLAMYDIA, AMPLIFIED, [id number] 00:00:00 Test Item Value Reference Range Interpretation Comments CHLAMYDIA, TMA (test code = 41768) POSITIVE GC, AMPLIFIED, [id number] 00:00:00 Test Item Value Reference Range Interpretation Comments GONORRHEA, TMA (test code = 44492) NEGATIVE GC, AMPLIFIED, [id number] 00:00:00 Test Item Value Reference Range Interpretation Comments GONORRHEA, TMA (test code = 20672) NEGATIVE GC, AMPLIFIED, [id number] 00:00:00 Test Item Value Reference Range Interpretation Comments GONORRHEA, TMA (test code = 58651) NEGATIVE GC, AMPLIFIED, [id number] 00:00:00 Test Item Value Reference Range Interpretation Comments GONORRHEA, TMA (test code = 35461) NEGATIVE CHLAMYDIA, AMPLIFIED, [id number] 00:00:00 Test Item Value Reference Range Interpretation Comments CHLAMYDIA, TMA (test code = 40934) NEGATIVE CHLAMYDIA, AMPLIFIED, [id number] 00:00:00 Test Item Value Reference Range Interpretation Comments CHLAMYDIA, TMA (test code = 11710) NEGATIVE GC, AMPLIFIED, [id number] 00:00:00 Test Item Value Reference Range Interpretation Comments GONORRHEA, TMA (test code = 72818) NEGATIVE GC, AMPLIFIED, [id number] 00:00:00 Test Item Value Reference Range Interpretation Comments GONORRHEA, TMA (test code = 33499) NEGATIVE CHLAMYDIA, AMPLIFIED, [id number] 00:00:00 Test Item Value Reference Range Interpretation Comments CHLAMYDIA, TMA (test code = 07911) NEGATIVE CHLAMYDIA, AMPLIFIED, [id number] 00:00:00 Test Item Value Reference Range Interpretation Comments CHLAMYDIA, TMA (test code = 30284) NEGATIVE GC, AMPLIFIED, [id number] 00:00:00 Test Item Value Reference Range Interpretation Comments GONORRHEA, TMA (test code = 44818) NEGATIVE GC, AMPLIFIED, [id number] 00:00:00 Test Item Value Reference Range Interpretation Comments GONORRHEA, TMA (test code = 10644) NEGATIVE CHLAMYDIA, AMPLIFIED, [id number] 00:00:00 Test Item Value Reference Range Interpretation Comments CHLAMYDIA, TMA (test code = 52920) NEGATIVE CHLAMYDIA, AMPLIFIED, [id number] 00:00:00 Test Item Value Reference Range Interpretation Comments CHLAMYDIA, TMA (test code = 78496) NEGATIVE HIV AB/AG COMBO RFLX [id number] 00:00:00 Test Item Value Reference Range Interpretation Comments HIV 1/2 4TH GEN, RFLX CONF (test NON-REACTIVE code = 3514) HIV AB/AG COMBO RFLX [id number] 00:00:00 Test Item Value Reference Range Interpretation Comments HIV 1/2 4TH GEN, RFLX CONF (test NON-REACTIVE code = 3514) ACUTE HEPATITIS [id number] 00:00:00 Test Item Value Reference Range Interpretation Comments HEPATITIS A IgM (test code = NON-REACTIVE 70910) HEPATITIS B CORE IgM (test code NON-REACTIVE = 4644) HEPATITIS B SURF AG (test code = NON-REACTIVE 2739) HEPATITIS C ANTIBODY (test code NON-REACTIVE = 4675) INTERPRETATION HEPATITIS A: (NOTE) (test code = 2552) INTERPRETATION HEPATITIS B: (NOTE) (test code = 63274) INTERPRETATION HEPATITIS C: (NOTE) (test code = 30123) ACUTE HEPATITIS [id number] 00:00:00 Test Item Value Reference Range Interpretation Comments HEPATITIS A IgM (test code = NON-REACTIVE 31555) HEPATITIS B CORE IgM (test code NON-REACTIVE = 4644) HEPATITIS B SURF AG (test code = NON-REACTIVE 2739) HEPATITIS C ANTIBODY (test code NON-REACTIVE = 4675) INTERPRETATION HEPATITIS A: (NOTE) (test code = 2552) INTERPRETATION HEPATITIS B: (NOTE) (test code = 58371) INTERPRETATION HEPATITIS C: (NOTE) (test code = 75422) [id number] 00:00:00 Test Item Value Reference Range Interpretation Comments RPR RESULT (test code = NON-REACTIVE 3501) RPR TITER (test code = 3500) NOT INDIC. TITER [id number] 00:00:00 Test Item Value Reference Range Interpretation Comments RPR RESULT (test code = NON-REACTIVE 3501) RPR TITER (test code = 3500) NOT INDIC. TITER [id number] 00:00:00 Test Item Value Reference Range Interpretation Comments RPR RESULT (test code = NON-REACTIVE 3501) RPR TITER (test code = 3500) NOT INDIC. TITER HIV AB/AG COMBO RFLX [id number] 00:00:00 Test Item Value Reference Range Interpretation Comments HIV 1/2 4TH GEN, RFLX CONF (test NON-REACTIVE code = 3514) HIV AB/AG COMBO RFLX [id number] 00:00:00 Test Item Value Reference Range Interpretation Comments HIV 1/2 4TH GEN, RFLX CONF (test NON-REACTIVE code = 3514) ACUTE HEPATITIS [id number] 00:00:00 Test Item Value Reference Range Interpretation Comments HEPATITIS A IgM (test code = NON-REACTIVE 89705) HEPATITIS B CORE IgM (test code NON-REACTIVE = 4644) HEPATITIS B SURF AG (test code = NON-REACTIVE 2739) HEPATITIS C ANTIBODY (test code NON-REACTIVE = 4675) INTERPRETATION HEPATITIS A: (NOTE) (test code = 2552) INTERPRETATION HEPATITIS B: (NOTE) (test code = 52604) INTERPRETATION HEPATITIS C: (NOTE) (test code = 37306) ACUTE HEPATITIS [id number] 00:00:00 Test Item Value Reference Range Interpretation Comments HEPATITIS A IgM (test code = NON-REACTIVE 16734) HEPATITIS B CORE IgM (test code NON-REACTIVE = 4644) HEPATITIS B SURF AG (test code = NON-REACTIVE 2739) HEPATITIS C ANTIBODY (test code NON-REACTIVE = 4675) INTERPRETATION HEPATITIS A: (NOTE) (test code = 2552) INTERPRETATION HEPATITIS B: (NOTE) (test code = 05421) INTERPRETATION HEPATITIS C: (NOTE) (test code = 72794) [id number] 00:00:00 Test Item Value Reference Range Interpretation Comments RPR RESULT (test code = NON-REACTIVE 3501) RPR TITER (test code = 3500) NOT INDIC. TITER [id number] 00:00:00 Test Item Value Reference Range Interpretation Comments RPR RESULT (test code = NON-REACTIVE 3501) RPR TITER (test code = 3500) NOT INDIC. TITER [id number] 00:00:00 Test Item Value Reference Range Interpretation Comments RPR RESULT (test code = NON-REACTIVE 3501) RPR TITER (test code = 3500) NOT INDIC. TITER HIV AB/AG COMBO RFLX [id number] 00:00:00 Test Item Value Reference Range Interpretation Comments HIV 1/2 4TH GEN, RFLX CONF (test NON-REACTIVE code = 3514) HIV AB/AG COMBO RFLX [id number] 00:00:00 Test Item Value Reference Range Interpretation Comments HIV 1/2 4TH GEN, RFLX CONF (test NON-REACTIVE code = 3514) ACUTE HEPATITIS [id number] 00:00:00 Test Item Value Reference Range Interpretation Comments HEPATITIS A IgM (test code = NON-REACTIVE 05233) HEPATITIS B CORE IgM (test code NON-REACTIVE = 4644) HEPATITIS B SURF AG (test code = NON-REACTIVE 2739) HEPATITIS C ANTIBODY (test code NON-REACTIVE = 4675) INTERPRETATION HEPATITIS A: (NOTE) (test code = 2552) INTERPRETATION HEPATITIS B: (NOTE) (test code = 17802) INTERPRETATION HEPATITIS C: (NOTE) (test code = 59924) ACUTE HEPATITIS [id number] 00:00:00 Test Item Value Reference Range Interpretation Comments HEPATITIS A IgM (test code = NON-REACTIVE 47726) HEPATITIS B CORE IgM (test code NON-REACTIVE = 4644) HEPATITIS B SURF AG (test code = NON-REACTIVE 2739) HEPATITIS C ANTIBODY (test code NON-REACTIVE = 4675) INTERPRETATION HEPATITIS A: (NOTE) (test code = 2552) INTERPRETATION HEPATITIS B: (NOTE) (test code = 70000) INTERPRETATION HEPATITIS C: (NOTE) (test code = 81767) [id number] 00:00:00 Test Item Value Reference Range Interpretation Comments RPR RESULT (test code = NON-REACTIVE 3501) RPR TITER (test code = 3500) NOT INDIC. TITER [id number] 00:00:00 Test Item Value Reference Range Interpretation Comments RPR RESULT (test code = NON-REACTIVE 3501) RPR TITER (test code = 3500) NOT INDIC. TITER [id number] 00:00:00 Test Item Value Reference Range Interpretation Comments RPR RESULT (test code = NON-REACTIVE 3501) RPR TITER (test code = 3500) NOT INDIC. TITER"
[2023-04-07] MEDS ORDERED: LIDOCAINE 1% MPF 30 ML VIAL ONE (23:44)
[2023-04-07] MEDS ORDERED: NA CHLORIDE 0.9% 1,000 ML ONE (23:44)
[2023-04-07] MEDS ORDERED: KETOROLAC 30 MG/ML INJ ONE (23:44)
[2023-04-07] MEDS ORDERED: ONDANSETRON 4 MG/2 ML VIAL ONE (23:44)
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
--- NOTE | 2023-04-08 01:56 | EDPHYS ---
Physician Documentation [facility] Name: Wang Cotter Age: 27 yrs Sex: Male : 1995 Arrival Date: 04/07/2023 Time: 23:11 Bed 6 Private MD: ED Physician Long Calles HPI: 04/07 23:16 This 27 yrs old Black Male presents to ER via Unassigned with complaints of Fall Injury.sp4 04/08 19:18 Patient presents with acute reported fall laceration to the lower lip on the left side sp4 and also acute laceration to the posterior scalp.. Historical: - Allergies: 04/07 23:30 No Known Allergies; as6 - Home Meds: 23:30 None [Active]; as6 - PMHx: 23:30 None; as6 - PSHx: 23:30 None; as6 - Immunization history:: Last tetanus immunization: unknown. - Social history:: Smoking status: Patient reports the use of cigarette tobacco products, Reported history of juuling and/or vaping. Patient uses alcohol. - Family history:: not pertinent. ROS: 04/08 19:18 Constitutional: Negative for fever, chills, and weight loss, positive for head sp4 injury, scalp laceration, lip laceration Skin: Negative for rash, and discoloration, positive for lip laceration, scalp laceration All other systems are negative. Exam: 19:18 Constitutional: This is a well developed, well nourished patient who is awake, alert, sp4 and in no acute distress. Patient appears heavily intoxicated Head/Face: Normocephalic, positive for right posterior scalp contusion with laceration 2 cm long. Positive for lower lip laceration to the left Eyes: Pupils equal round and reactive to light, extra-ocular motions intact. Lids and lashes normal. Conjunctiva and sclera are not injected. Cornea within normal limits. Periorbital areas with no swelling, redness, or edema. ENT: Nares patent. No nasal discharge, no septal abnormalities noted. Tympanic membranes are normal and external auditory canals are clear. Oropharynx with no redness, swelling, or masses, exudates, or evidence of obstruction, uvula midline. Mucous membranes moist. Neck: Trachea midline, no thyromegaly or masses palpated, and no cervical lymphadenopathy. Supple, full range of motion without nuchal rigidity, or vertebral point tenderness. Chest/axilla: Normal chest wall appearance and motion. Nontender with no deformity. No lesions are appreciated. Cardiovascular: Regular rate and rhythm with a normal S1 and S2. No gallops, murmurs, or rubs. Normal PMI, no JVD. No pulse deficits. Respiratory: Lungs have equal breath sounds bilaterally, clear to auscultation and percussion. No rales, rhonchi or wheezes noted. No increased work of breathing, no retractions or nasal flaring. Abdomen/GI: Soft, non-tender, with normal bowel sounds. No distension or tympany. No guarding or rebound. No evidence of tenderness throughout. Back: No spinal tenderness. No costovertebral tenderness. Skin: Warm, dry with normal turgor. Normal color with no rashes, no lesions, and no evidence of cellulitis. MS/ Extremity: Pulses equal, no cyanosis. Neurovascular intact. Full, normal range of motion. Neuro: Awake and alert, GCS 15, oriented to person, place, time, and situation. Cranial nerves II-XII grossly intact. Motor strength 5/5 in all extremities. Sensory grossly intact. Psych: Awake, alert, with orientation to person, place and time. Positive for moderate to heavy intoxication Vital Signs: 04/07 23:29 BP 125 / 86; Pulse 76; Resp 18 S; Temp 97.8(TE); Pulse Ox 99% on R/A; Weight 81.65 kg as6 (R); Height 5 ft. 7 in. (R); Pain 7/10; 23:29 Body Mass Index 28.19 (81.65 kg, 170.18 cm) as6 23:29 Pain Scale: Adult as6 Laceration: 04/08 19:18 Wound Repair of 2cm ( 0.8in ) subcutaneous laceration to mouth, positive for 2 cm sp4 laceration just inferior to the lower lip on the left side, positive for 2 cm laceration lower internal lip in the oral cavity. Linear shaped.. Minimal bleeding noted.. Distal neuro/vascular/tendon intact. Anesthesia: Wound infiltrated with 10 mls of 1% lidocaine. Wound prep: Moderate cleansing by me, Wound explored. Skin closed with 6 6-0 Prolene using interrupted sutures and sterile technique. Dressed with Left to air. Patient tolerated well. 19:18 Wound Repair of 2cm ( 0.8in ) subcutaneous laceration to mouth, lower lip left side sp4 internal laceration oral cavity. Irregularly shaped.. Minimal bleeding noted.. Distal neuro/vascular/tendon intact. Anesthesia: Wound infiltrated with 10 mls of 1% lidocaine. Wound prep: Wound explored moderately. Skin closed with 3 4-0 Silk using interrupted sutures and sterile technique. Dressed with No dressing. Patient tolerated well. 19:18 Wound Repair of 2cm ( 0.8in ) subcutaneous laceration to right parietal area. sp4 Irregularly shaped.. Hemostasis noted.. Distal neuro/vascular/tendon intact. Anesthesia: Wound infiltrated with 12 mls of 1% lidocaine. Wound prep: Moderate cleansing by me, Wound explored. Skin closed with 4 1-0 Tamera using staple gun. Dressed with Left to air. Patient tolerated well. MDM: 04/07 23:16 Patient medically screened. sp4 04/08 19:18 Differential diagnosis: abrasion, closed head injury, contusion, fracture, laceration, sp4 multiple trauma, sprain, strain. Data reviewed: vital signs, nurses notes, radiologic studies, CT scan. Consideration of Admission/Observation Escalation of care including admission/observation considered. ED course: Patient's lacerations were repaired, patient was allowed to sober up for some time, CT revealed incidental finding of hemangioma and patient's family was made aware of it. We will advise follow-up with investigative agent within next 30 days for an office visit for evaluation and further tests for hemangioma.. 04/07 23:29 Order name: CT Head C Spine 4 04/07 23:31 Order name: Dressing - Wound; Complete Time: 23:45 sp4 04/07 23:31 Order name: Gloves, Sterile; Complete Time: 02:08 4 04/07 23:31 Order name: Setup Suture Tray; Complete Time: 02:08 [facility] 04/07 23:32 Order name: IV Saline Lock; Complete Time: 23:45 sb4 Administered Medications: 04/07 23:45 Drug: Ketorolac IVP 30 mg Route: IVP; Site: left antecubital; kd3 23:45 Drug: NS 0.9% IV 1000 ml Route: IV; Rate: 1 bolus; Site: left antecubital; kd3 23:45 Drug: Ondansetron IVP 4 mg Route: IVP; Site: left antecubital; kd3 04/08 02:08 Drug: Lidocaine Infiltration (1 %) 30 ml Volume: 20 ml; Route: Infiltration; sb4 Disposition Summary: 04/08/23 01:56 Discharge Ordered Location: Home sp4 Problem: new sp4 Symptoms: have improved sp4 Condition: Stable sp4 Diagnosis - Left facial laceration initial encounter, internal oral laceration initial sp4 encounter, right parietal scalp laceration initial encounter, alcohol intoxication, acute fall, closed head injury Followup: sp4 - With: Private Physician - When: 10 - 14 days - Reason: Recheck today's complaints Followup: sp4 - With: Rohan Turcios MD - When: 10 - 14 days - Reason: Recheck today's complaints Discharge Instructions: - Discharge Summary Sheet sp4 - Facial Laceration, [id number] sp4 - Hemangioma sp4 Signatures: Dispatcher [employer] EDFuentes Dwyer RN RN as6 Carol Mcnamara RN RN kd3 Azeb Salinas, PA-C PA-C sb4 Long Calles MD MD sp4 Corrections: (The following items were deleted from the chart) 04/07 23:32 23:29 Labs collected and sent ordered. sp4 sb4
[2023-04-08 02:59] VITALS: BP 125/86; TEMP 97.8; O2SAT 99
--- NOTE | 2023-04-09 12:27 | RAD REPORT ---
EXAM DESCRIPTION: CT - Head C Spine Mpr Wo Con - 04/08/2023 2:25 am CLINICAL HISTORY: The patient is 27 years old and is Male; head injury TECHNIQUE: Axial computed tomography images of the head/brain and cervical spine without intravenous contrast. Sagittal and coronal reformatted images were created and reviewed. This CT exam was pe rformed using one or more of the following dose reduction techniques: automated exposure control, a djustment of the mA and/or kV according to patient size, and/or use of iterative reconstruction techn ique. COMPARISON: No relevant prior studies available. FINDINGS: BRAIN: Unremarkable. No hemorrhage. No significant white matter disease. No edema. VENTRICLES: Unremarkable. No ventriculomegaly. SKULL: A 1.5 x 0.9 cm lucent lesion within the left parietal bone is present with erosion of the inner table cortex. This has the typical Dresser pattern seen with hemangioma. No acute fracture. SINUSES: Unremarkable as visualized. No acute sinusitis. MASTOID AIR CELLS: Unremarkable as visualized. No mastoid effusion. VERTEBRAE: The vertebral body heights and alignment are maintained. No acute fracture. DISCS/SPINAL CANAL/NEURAL FORAMINA: The intervertebral disc spaces are maintained. No spinal willow l stenosis. SOFT TISSUES: The soft tissues are normal. LUNG APICES: Unremarkable as visualized. IMPRESSION: 1. No acute intracranial findings. 2. No fracture or malalignment of the cervical spine. 3. Lytic lesion within the left parietal bone most suggestive of a hemangioma. Electronically signed by: Dasha Eric MD 04/08/2023 12:28 AM CDT Due to temporary technical issues with the PACS/Fluency reporting system, reports are being signed by the in house radiologist without review as a courtesy to ensure prompt reporting. The interpreting r adiologist is fully responsible for the content of the report.
== END 2023-04-08 02:08 | disposition home or self-care (01) ==
LOC: ER 23:11
PROC: 0HQ0XZZ Repair Scalp Skin, External Approach (ICD-10-PCS; principal; 2023-04-08)
DX: S01.01XA Laceration without foreign body of scalp, initial encounter (principal); S01.512A Laceration without foreign body of oral cavity, initial encounter; F10.129 Alcohol abuse with intoxication, unspecified; W18.30XA Fall on same level, unspecified, initial encounter; Z72.0 Tobacco use
CPT/HCPCS: 70450; 72125; 96375; 96374; 99284; 12013; 12001; J2001; J2405; J7030

== ENCOUNTER 2023-08-03 09:40 | Day surgery (SDC) | payer OTHER ==
[2023-08-03 10:06] LABS: Absolute Lymphocytes (CBC) 1.1 K/uL (0.7-4.9); Hematocrit 39.8 % (39.6-49.0); Lymphocytes % 23.8 % (15.3-44.8); MCV 86.9 fL (80-100); MPV 7.4 fL (7.6-11.3); Platelets 392 thou/uL (152-406); RBC Red Blood Cell Count 4.58 M/uL (4.33-5.43)
[2023-08-03 10:12] LABS: Potassium 4.1 mEq/L (3.5-5.1)
[2023-08-03] MEDS ORDERED: FENTANYL CITR 100 MCG/2 ML ONE ×2 (10:22→11:22)
[2023-08-03] MEDS ORDERED: Ringers Lactate 1,000 ML IV ONE (10:22)
[2023-08-03] MEDS ORDERED: CEFAZOLIN SODIUM 1 GM/VIAL ONE (10:22)
[2023-08-03] MEDS ORDERED: MIDAZOLAM HCL 2 MG/2 ML INJ ONE (10:22)
[2023-08-03 10:35] VITALS: O2SAT 100
[2023-08-03] MEDS ORDERED: LIDOCAINE 2% MPF 5 ML VIAL ONE ×2 (10:54→11:22)
[2023-08-03] MEDS ORDERED: propofoL 200 MG/20 ML VIAL IV ONE (11:22)
[2023-08-03] MEDS ORDERED: dexAMETHasone 4 MG/ML VIAL ONE (11:23)
[2023-08-03] MEDS ORDERED: KETOROLAC 30 MG/ML INJ ONE (11:23)
[2023-08-03] MEDS ORDERED: ONDANSETRON 4 MG/2 ML VIAL ONE (11:23)
[2023-08-03] MEDS ORDERED: EPHEDRINE SULF 50 MG/ML VIAL ONE (11:46)
--- NOTE | 2023-08-03 13:36 | RAD REPORT ---
EXAM DESCRIPTION: RAD - Ankle Right 2 View - 08/03/2023 1:10 pm CLINICAL HISTORY: Ankle fracture FINDINGS: Open reduction internal fixation fractures distal fibula and tibia. Surgery performed by Kelvin Robles 32 fluoroscopic intraoperative images obtained. Fluoroscopy time.8 minutes
[2023-08-03 14:43] VITALS: BP 141/80; TEMP 97.2
--- NOTE | 2023-08-04 01:08 | OP ---
Date of Procedure: 08/03/2023 Surgeon: Luan Robles MD Preoperative Diagnosis: Right ankle bimalleolar ankle fracture dislocation. Postoperative Diagnosis: Right ankle bimalleolar ankle fracture dislocation. Procedure: Right ankle open reduction internal fixation of both medial and lateral malleolus using t he Acumed ankle plating system. Estimated Blood Loss: 20 cc. Complications: There were no complications. Indications For Operation: Mr. Cotter is a 27-year-old gentleman who unfortunately had a fracture di slocation of his ankle that was reduced in the emergency department. He came to see me in my office where he had swelling of his ankle which precluded immediate operative intervention, however, was sana d to keep his leg highly elevated and he arrived back to see me for skin check and risks, benefits, a nd alternatives to different methods of treating this have been discussed on several times and he opt ed to proceed with open reduction internal fixation. Description Of Procedure: The patient was taken to the operating room, placed in supine position, ge neral anesthesia obtained by staff. He previous had block placed by Anesthesia. Following this, his lower extremities were then prepped and draped in usual sterile fashion. C-arm was brought into ens ure good views. The leg was then elevated, but not exsanguinated. Tourniquet was raised. Decision was made to proceed with the medial side first. A standard medial incision was taken down carefully to skin and soft tissues. Meticulous hemostasis being maintained using Bovie electrocautery. This l mickey to the fracture site which was meticulously cleaned. It should be noted that this fracture is s omewhat more horizontal and more consistent with an abduction type fracture. It should also be noted there were several ridges associated with this fracture, making it somewhat difficult to obtain an a natomic reduction, however, C-arm was used liberally and reduction was achieved. After this, 2 K-wir es were then placed followed by cannulated screws. These were placed in a slightly more horizontal f ashion than regularly seen with a standard medial malleolus fracture, but these were placed in this m dave to directly counteract the angle of the fracture and supply the most compression. Following th is, a large bump was placed on the lateral aspect of the ankle and a standard lateral incision was th en taken down carefully through skin and soft tissues. Meticulous hemostasis being maintained using Bovie electrocautery, this leads down the fracture site itself. The fracture itself was highly commi nuted with an intact distal fragment as well as a significant amount of comminution followed by the r emaining proximal fibula. There was no way to anatomically reduce this, definitely no role for lag s crew. This is somewhat mobile and decision was made to use the Acumed locking pegs in the distal fra gment, which allowed to use this to help with distraction as well as with buttressing. After these w ere applied with care being taken to have the more proximal aspect of the plate being pressed along t he fibula. As much length as could be obtained it was then used using a bone hook into the plate as well as a clamp. This allowed for placement of a screw proximally to allow for the greatest lengthen ing of the fibula. This was then compressed which does supply a large buttress and improved the redu ction quite a bit. It does look like it may still be a little short, however, efforts to elongate it farther were not met with significant success. The decision was made to continue with the remainder of this small pegs as well as screws. After this, the wounds were copiously irrigated and the skin was closed using Vicryl sutures followed by emil. The patient was then placed in extremely well-p added sterile dressing as well as a posterior splint with the U, awakened, taken to recovery room. TODD Voice ID: [id number] Report ID: [id number]
== END 2023-08-03 15:30 | disposition home or self-care (01) ==
LOC: OR 09:40
PROVIDERS: ATTEND Orthopaedic Surgery
PROC: 0QSG0ZZ Reposition Right Tibia, Open Approach (ICD-10-PCS; 2023-08-03)
PROC: 0QSJ04Z Reposition Right Fibula with Internal Fixation Device, Open Approach (ICD-10-PCS; principal; 2023-08-03 11:00)
DX: S82.841A Displaced bimalleolar fracture of right lower leg, initial encounter for closed fracture (principal)
CPT/HCPCS: 85025; 80048; 36415; 73600; 27814; J2704; J1100; J2001 ×2; J2250; J3010 ×2; J2405; J7120; J0690